=== PATIENT | female | born 1965 | race Caucasian/White ===

== ENCOUNTER → 2016-11-16 | Outpatient (CLI) | payer OTHER ==
--- NOTE | 2016-11-16 20:42 | CONS ---
DATE OF CONSULTATION: 11/16/2016 This patient is a 51-year-old lady who has been evaluated in the sleep center for snoring, awakenings from sleep with choking and excessive daytime sleepiness. HISTORY OF PRESENT ILLNESS/SLEEP-WAKE EVALUATION: Patient's usual sleep schedule is from around 11 p.m. until 5:30 a.m. on working days, and on weekends and days off, it varies. She sometimes has problems falling asleep. She has TV set in bedroom. Usually sleeps on the side position with snoring, awakenings with gasping for air, grinding teeth, heartburn and nocturia up to 3 times per night. In the morning patient wakes up tired, feels sleepiness during the day. [place] Sleepiness Scale increased to 10. No history of hypnagogic hallucinations, sleep paralysis or cataplexy. Past medical history is positive for: 1. ADD. 2. Acid reflux. 3. Anxiety. 4. Hypertension. 5. Melanoma of the skin of the back. PAST SURGICAL HISTORY: 1. Uterus ablation for bleeding. 2. Breast reduction. 3. Surgical treatment of melanoma of the back. 4. Surgery of the nose many years ago after nasal fracture. SOCIAL HISTORY: Positive for smoking 1 pack a day for about 20 years. Alcohol consumption is occasional. MEDICATIONS: 1. Adderall. 2. Toprazole. 3. Lisinopril. 4. Citalopram. FAMILY HISTORY: Hypertension, heart problems, sinus problems, bronchitis, pneumonia, headaches, acid reflux, diabetes, anemia, during sleep. REVIEW OF SYSTEMS: Multiple awakenings from sleep, excessive daytime sleepiness. No fevers. No double vision. No recent chest pain. No shortness of breath. No abdominal pain. No bleeding episodes. No blood in urine. No seizure episodes. PHYSICAL EXAMINATION: lady without distress. VITAL SIGNS: BP 130/82, HR 104, RR 16. Height 5 feet 4-1/2 inches. Weight 164. BMI 27.7. Neck 15 inches in circumference. Temperature 98.2. Oxygen saturation at room air 99%. HEENT: PERRLA, EOMI. Evaluation of oropharynx showed tongue protrudes midline; extremely low position of soft palate. Restriction of nasal breathing. Nasal septum deviation. Asymmetric nostrils. NECK: Supple. No JVD. Thyroid is not palpable. LUNGS: Clear to percussion and to auscultation. Good air exchange. No wheezing or rhonchi. HEART: S1, S2 regular. No murmurs, gallops or rubs. ABDOMEN: Soft and nontender. Bowel sounds are present. No organomegaly appreciated. EXTREMITIES: No clubbing or cyanosis. INSURANCE CLAIMS ASSISTANT: Awake, alert, and oriented x3. Cranial nerves 2 to 7 intact. There is no fasciculation or atrophy noted. No focal deficits observed. Scar on the back. IMPRESSION: 1. Snoring, awakenings from sleep with choking, extremely low position of soft palate, restriction of nasal breathing, sleepiness. [place] Sleepiness Scale is 10. Obstructive sleep apnea-hypopnea syndrome. 2. Hypertension. 3. Anxiety. 4. History of attention deficit disorder, on treatment with Adderall. 5. Acid reflux. 6. History of melanoma of the skin on the back, status post surgical treatment. 7. History of nasal fracture in childhood. 8. Status post nasal surgery for nasal fracture and nasal septum deviation. Patient continues to have some problems with breathing through the nose, nasal septum deviation. 9. Status post uterus ablation for bleeding. PLAN: 1. Polysomnography for evaluation of patient's breathing during sleep. 2. CPAP/BiPAP titration if sleep study confirms obstructive sleep apnea-hypopnea syndrome. 3. Preferable position during sleep on the side. 4. No driving if patient feels any sleepiness. Patient is aware of civil and criminal liability for unsafe driving. 5. I will see patient for follow-up visit to explain results of the testing and following plan. Thank you very much for referring this patient for consultation. Sincerely, Addison Mcfarland MD, PhD, FAASM. Diplomat of [place] [employer], Sleep Medicine Board by [place] [employer] [place] [employer] Vice President Of [employer] [facility] [place]
== END | disposition home or self-care (01) ==
LOC: SLEEP 13:21
PROVIDERS: ATTEND Internal Medicine
DX: G47.33 Obstructive sleep apnea (adult) (pediatric) (principal); I10 Essential (primary) hypertension; F41.9 Anxiety disorder, unspecified; F98.8 Other specified behavioral and emotional disorders with onset usually occurring in childhood and adolescence; K21.9 Gastro-esophageal reflux disease without esophagitis; Z79.899 Other long term (current) drug therapy

== ENCOUNTER → 2018-08-07 | Outpatient (CLI) | payer OTHER ==
--- NOTE | 2018-08-07 12:14 | SFUN ---
SLEEP CENTER FOLLOW UP NOTE DATE OF SERVICE: 08/07/2018 This 52-year-old lady has been re-evaluated in sleep center for possible obstructive sleep apnea-hypopnea syndrome. Patient was seen in sleep center in 11/16/2016. At that time, was recommended to proceed with sleep study for possible obstructive sleep apnea, but for different reason patient was not able to do that at that time. The patient continues to snore. According to her , she has episodes of stopped breathing during the sleep. Her sleep schedule from 10 to 11 p.m. until 5:45 a.m. and she wakes up around 4 times from sleep with nocturia. In the morning, she wakes up tired. [place] Sleepiness Scale is 9. CURRENT MEDICATIONS: Metformin, Celexa, atorvastatin, Adderall, omeprazole, lisinopril. PHYSICAL EXAMINATION: During physical exam, patient in no distress VITAL SIGNS: BP 135/87, HR around 110, RR 16, height 5 feet 4-1/2 inches, weight 164 pounds, body mass index 27.7, temperature 98.5, oxygen saturation at room air 97%. HEENT: PERRLA, EOMI. Oropharynx extremely low position of soft palate. Mallampati 4. Asymmetric nose. NECK: Supple, no JVD. Thyroid is not palpable. LUNGS: Clear to percussion and to auscultation. Good air exchange. No wheezing or rhonchi. HEART: S1, S2 regular. No murmurs, gallops, or rubs. ABDOMEN: Soft and nontender. Bowel sounds are present. No organomegaly appreciated. EXTREMITIES: No clubbing or cyanosis. CAR WIPER: Awake, alert, and oriented X3. Cranial nerves 2 to 7 intact. There is no fasciculation or atrophy. noted. No focal deficits observed. IMPRESSION: 1. Snoring, witnessed episodes of stopped breathing during the sleep, low position of soft palate, awakenings from sleep, obstructive sleep apnea-hypopnea syndrome. 2. Hypertension. 3. Anxiety. 4. History of attention deficit disorder treatment with Adderall. 5. Acid reflux. 6. History of melanoma of the skin of the back, status post surgical treatment. 7. History of nasal fracture in chart with asymmetry of nose and status post surgical treatment for nasal septum deviation. 8. Diabetes mellitus. 9. Hyperlipidemia. 10.Status post uterus ablation in the past for bleeding. PLAN: 1. Polysomnography for evaluation of patient's breathing during the sleep. 2. CPAP titration if sleep study will be positive for obstructive sleep apnea-hypopnea syndrome. 3. Watching weight. 4. Sleep hygiene with regular time in bed for at least 7-1/2 hours. 5. No driving if feeling any sleepiness. Thank you very much for allowing me to participate in management of your patient. Sincerely, Addison Mcfarland MD, PhD, FAASM Diplomat of [place] [employer] [place] [employer] Nurse [employer] [facility] [place] MMODL / IJN: [id number] /
== END ==
LOC: SLEEP 11:06
PROVIDERS: ATTEND Internal Medicine
DX: G47.33 Obstructive sleep apnea (adult) (pediatric) (principal); I10 Essential (primary) hypertension; F41.9 Anxiety disorder, unspecified; K21.9 Gastro-esophageal reflux disease without esophagitis; Z85.820 Personal history of malignant melanoma of skin; Z87.81 Personal history of (healed) traumatic fracture; Z98.890 Other specified postprocedural states; E11.9 Type 2 diabetes mellitus without complications; E78.5 Hyperlipidemia, unspecified; Z99.89 Dependence on other enabling machines and devices; Z86.69 Personal history of other diseases of the nervous system and sense organs; Z79.84 Long term (current) use of oral hypoglycemic drugs; Z79.899 Other long term (current) drug therapy

== ENCOUNTER 2020-07-31 08:49 | Emergency (ER) | payer OTHER ==
[2020-07-31 08:54] VITALS: BP 147/90; TEMP 98.2
[2020-07-31] MEDS ORDERED: IBUPROFEN 800 MG TAB PO STA (09:09)
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
--- NOTE | 2020-07-31 09:47 | XR ---
EXAMINATION TYPE: XR chest 2V DATE OF EXAM: 07/31/2020 COMPARISON: 10/19/2010 HISTORY: 54-year-old female with chest pain and weakness TECHNIQUE: PA and lateral views FINDINGS: The cardiomediastinal silhouette, aorta, and pulmonary vasculature are within normal limits. Lungs an d pleural spaces are clear. IMPRESSION: No acute cardiopulmonary process.
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
[2020-07-31 10:16] VITALS: PULSE 89; RESP 16
== END 2020-07-31 10:15 | disposition home or self-care (01) ==
LOC: EC 08:49
DX: S16.1XXA Strain of muscle, fascia and tendon at neck level, initial encounter (principal); S39.012A Strain of muscle, fascia and tendon of lower back, initial encounter; S20.219A Contusion of unspecified front wall of thorax, initial encounter; Z88.2 Allergy status to sulfonamides; V89.2XXA Person injured in unspecified motor-vehicle accident, traffic, initial encounter; Y92.410 Unspecified street and highway as the place of occurrence of the external cause
CPT/HCPCS: 71046; 72050; 72110; 72170; 99284

== ENCOUNTER 2020-12-07 11:57 | Emergency (ER) | payer OTHER ==
[2020-12-07 12:03] VITALS: RESP 16; TEMP 98.5
--- NOTE | 2020-12-07 12:22 | ED ---
General Adult HPI - General Chief complaint: Arrhythmia/Palpitations Stated complaint: palpitations Time Seen by Provider: 12/07/20 12:04 Source: patient Mode of arrival: ambulatory Limitations: no limitations - History of Present Illness Initial comments: Dictation was produced using [employer] dictation software. please excuse any grammatical, word or spelling errors. Chief Complaint: 55-year-old female presents with 2-3 days of palpitations and shortness breath History of Present Illness: 55-year-old female she has past medical history of diabetes, hypertension high cholesterol. She states that over the last 2-3 days she develop symptoms of palpitatory chest discomfort and shortness of breath. She states she can feel the fluttering in her chest. She denies that it feels like pain but more like a fluttering discomfort. Patient states that she has history of mitral valve prolapse. She has not seen a gas furnace installer in several years. There has any fever, chills or night sweats. Patient denies a history of blood clots. She denies any LOC show any symptoms. The ROS documented in this emergency department record has been reviewed and confirmed by me. Those systems with pertinent positive or negative responses have been documented in the HPI. All other systems are other negative and/or noncontributory. PHYSICAL EXAM: General Impression: Alert and oriented x3, not in acute distress HEENT: Normocephalic atraumatic, extra-ocular movements intact, pupils equal and reactive to light bilaterally, mucous membranes moist. Cardiovascular: Heart regular rate and rhythm Chest: Able to complete full sentences, no retractions, no tachypnea Abdomen: abdomen soft, non-tender, non-distended, no organomegaly Musculoskeletal: Pulses present and equal in all extremities, no peripheral edema Motor: no focal deficits noted Neurological: CN II-XII grossly intact, no focal motor or sensory deficits noted Skin: Intact with no visualized rashes Psych: Normal affect and mood ED course: 55-year-old female presents with palpitations and shortness of breath. Vital signs upon arrival are within acceptable limits. Laboratory evaluation obtained. CBC unremarkable. Metabolic panel is negative aside for some mild dehydration. Chest x-ray is unremarkable. D-dimer is negative. Patient observed in emergency department for approximately 2 hours and 11 minutes with no acute processes. Patient still has some PVCs a lot less after IV hydration. Patient told to follow-up with a gas furnace installer. Return precautions discussed. EKG interpretation: Ventricular rate 101, sinus tachycardia,. 142, QRS 70, QTC 474. Multiple PVCs.. No KS prolongation, no QTC prolongation, no ST or T-wave changes noted. No old EKG for comparison. Overall, this EKG is unremarkable - Related Data Home Medications Medication Instructions Recorded Confirmed Dextroamphetamine/Amphetamine 30 mg PO DAILY 07/31/20 12/07/20 [Adderall] [place]-3 Fatty Acids/Fish Oil [Fish 1 cap PO DAILY 07/31/20 12/07/20 Oil 1,000 mg Softgel] Omeprazole 40 mg PO DAILY 07/31/20 12/07/20 lisinopriL [Zestril] 10 mg PO DAILY 07/31/20 12/07/20 Aspirin EC [Ecotrin Low Dose] 81 mg PO DAILY 12/07/20 12/07/20 Atorvastatin Calcium [Lipitor] 10 mg PO HS 12/07/20 12/07/20 Cholecalciferol (Vitamin D3) 125 mcg PO DAILY 12/07/20 12/07/20 [Vitamin D3 (5000 Iu)] metFORMIN HCL ER [Glucophage Xr] 500 mg PO HS 12/07/20 12/07/20 Allergies Allergy/AdvReac Type Severity Reaction Status Date / Time Sulfa (Sulfonamide Allergy Rash/Hives Verified 12/07/20 13:53 Antibiotics) Review of Systems ROS Statement: Those systems with pertinent positive or pertinent negative responses have been documented in the HPI. ROS Other: All systems not noted in ROS Statement are negative. Past Medical History Past Medical History: Diabetes Mellitus, Hypertension History of Any Multi-Drug Resistant Organisms: None Reported Past Surgical History: No Surgical Hx Reported Past Psychological History: No Psychological Hx Reported Smoking Status: Never smoker Past Alcohol Use History: Occasional Past Drug Use History: Marijuana General Exam Limitations: no limitations Course Vital Signs 12/07/20 12:01 Temperature 98.5 F Pulse Rate 100 Respiratory 16 Rate Blood Pressure 127/86 O2 Sat by Pulse 98 Oximetry Medical Decision Making - Lab Data Result diagrams: 12/07/20 12:13 12/07/20 12:13 Lab Results 12/07/20 12/07/20 12/07/20 Range/Units 12:13 12:13 12:13 WBC 9.0 (3.8-10.6) k/uL RBC 4.72 (3.80-5.40) m/uL Hgb 13.8 (11.4-16.0) gm/dL Hct 40.1 (34.0-46.0) % MCV 84.9 (80.0-100.0) fL MCH 29.3 (25.0-35.0) pg MCHC 34.5 (31.0-37.0) g/dL RDW 14.3 (11.5-15.5) % Plt Count 309 (150-450) k/uL MPV 7.4 Neutrophils % 71 % Lymphocytes % 22 % Monocytes % 3 % Eosinophils % 2 % Basophils % 1 % Neutrophils # 6.5 (1.3-7.7) k/uL Lymphocytes # 2.0 (1.0-4.8) k/uL Monocytes # 0.3 (0-1.0) k/uL Eosinophils # 0.2 (0-0.7) k/uL Basophils # 0.0 (0-0.2) k/uL D-Dimer (<0.60) mg/L FEU Sodium 136 L (137-145) mmol/L Potassium 4.6 (3.5-5.1) mmol/L Chloride 100 (98-107) mmol/L Carbon Dioxide 23 (22-30) mmol/L Anion Gap 13 mmol/L BUN 21 H (7-17) mg/dL Creatinine 0.63 (0.52-1.04) mg/dL Est GFR (CKD-EPI)AfAm >90 (>60 ml/min/1.73 sqM) Est GFR (CKD-EPI)NonAf >90 (>60 ml/min/1.73 sqM) Glucose 175 H (74-99) mg/dL Calcium 10.9 H (8.4-10.2) mg/dL Magnesium 1.8 (1.6-2.3) mg/dL Troponin I <0.012 (0.000-0.034) ng/mL 12/07/20 Range/Units 12:47 WBC (3.8-10.6) k/uL RBC (3.80-5.40) m/uL Hgb (11.4-16.0) gm/dL Hct (34.0-46.0) % MCV (80.0-100.0) fL MCH (25.0-35.0) pg MCHC (31.0-37.0) g/dL RDW (11.5-15.5) % Plt Count (150-450) k/uL MPV Neutrophils % % Lymphocytes % % Monocytes % % Eosinophils % % Basophils % % Neutrophils # (1.3-7.7) k/uL Lymphocytes # (1.0-4.8) k/uL Monocytes # (0-1.0) k/uL Eosinophils # (0-0.7) k/uL Basophils # (0-0.2) k/uL D-Dimer 0.30 (<0.60) mg/L FEU Sodium (137-145) mmol/L Potassium (3.5-5.1) mmol/L Chloride (98-107) mmol/L Carbon Dioxide (22-30) mmol/L Anion Gap mmol/L BUN (7-17) mg/dL Creatinine (0.52-1.04) mg/dL Est GFR (CKD-EPI)AfAm (>60 ml/min/1.73 sqM) Est GFR (CKD-EPI)NonAf (>60 ml/min/1.73 sqM) Glucose (74-99) mg/dL Calcium (8.4-10.2) mg/dL Magnesium (1.6-2.3) mg/dL Troponin I (0.000-0.034) ng/mL Disposition Clinical Impression: Palpitations Disposition: HOME SELF-CARE Condition: Good Instructions (If sedation given, give patient instructions): Heart Palpitations (ED) Is patient prescribed a controlled substance at d/c from ED?: No Referrals: Ping Canela MD [Primary Care Provider] - 1-2 days
[2020-12-07 12:27] LABS: Basophils % (A) 1 %; Eosinophils # (A) 0.2 k/uL (0-0.7); Eosinophils % (A) 2 %; HCT 40.1 % (34.0-46.0); HGB 13.8 gm/dL (11.4-16.0); Lymphocytes % (A) 22 %; MCH 29.3 pg (25.0-35.0); MCHC 34.5 g/dL (31.0-37.0); MCV 84.9 fL (80.0-100.0); Mean Platelet Volume 7.4; Monocytes # (A) 0.3 k/uL (0-1.0); Monocytes % (A) 3 %; Neutrophils # (A) 6.5 k/uL (1.3-7.7); Neutrophils % (A) 71 %; Platelet Count 309 k/uL (150-450); RBC 4.72 m/uL (3.80-5.40); RDW 14.3 % (11.5-15.5)
[2020-12-07 12:38] LABS: African American GFR (CKD) >90 (>60 ml/min/1.73 sqM); Anion Gap 13 mmol/L; Blood Urea Nitrogen 21 mg/dL (7-17); Calcium 10.9 mg/dL (8.4-10.2); Carbon Dioxide 23 mmol/L (22-30); Chloride 100 mmol/L (98-107); Glucose 175 mg/dL (74-99); Magnesium 1.8 mg/dL (1.6-2.3); Non-African American GFR(CKD) >90 (>60 ml/min/1.73 sqM); Potassium 4.6 mmol/L (3.5-5.1); Sodium 136 mmol/L (137-145)
--- NOTE | 2020-12-07 12:38 | XR ---
EXAMINATION TYPE: XR chest 1V portable DATE OF EXAM: 12/07/2020 COMPARISON: 07/31/2020 HISTORY: Palpitations TECHNIQUE: Single frontal view of the chest is obtained. FINDINGS: There is no focal air space opacity, pleural effusion, or pneumothorax seen. The cardiac silhouette size is within normal limits. The osseous structures are intact. IMPRESSION: No acute process.
[2020-12-07] MEDS ORDERED: SODIUM CHLORIDE 0.9% 1,000 ML IV STA (12:41)
[2020-12-07 14:20] VITALS: BP 127/79; PULSE 84
== END 2020-12-07 14:19 | disposition home or self-care (01) ==
LOC: EC 11:57
DX: R00.2 Palpitations (principal); R06.02 Shortness of breath; E11.9 Type 2 diabetes mellitus without complications; I10 Essential (primary) hypertension; E78.00 Pure hypercholesterolemia, unspecified; F12.90 Cannabis use, unspecified, uncomplicated; Z79.84 Long term (current) use of oral hypoglycemic drugs; Z79.82 Long term (current) use of aspirin; Z79.899 Other long term (current) drug therapy; Z88.2 Allergy status to sulfonamides
CPT/HCPCS: 36415; 71045; 80048; 83735; 84484; 85025; 85379; 93005; 99285

== ENCOUNTER 2021-07-28 20:46 | Inpatient (IN) | payer OTHER ==
[2021-07-28] MEDS ORDERED: SODIUM CHLORIDE 0.9% 1,000 ML IV STA (21:41)
[2021-07-28] MEDS ORDERED: ONDANSETRON 4 MG/2 ML VIAL IVP STA (22:18)
[2021-07-28 22:27] LABS: Basophils # (A) 0.1 k/uL (0-0.2); Basophils % (A) 1 %; Eosinophils # (A) 0.2 k/uL (0-0.7); Eosinophils % (A) 1 %; HCT 43.9 % (34.0-46.0); HGB 14.1 gm/dL (11.4-16.0); Lymphocytes % (A) 16 %; MCH 28.9 pg (25.0-35.0); MCV 90.2 fL (80.0-100.0); Mean Platelet Volume 8.1; Monocytes # (A) 0.8 k/uL (0-1.0); Monocytes % (A) 5 %; Neutrophils % (A) 76 %; Platelet Count 328 k/uL (150-450); RBC 4.87 m/uL (3.80-5.40); RDW 14.2 % (11.5-15.5); WBC 18.3 k/uL (3.8-10.6)
[2021-07-28 22:39] LABS: Albumin 4.9 g/dL (3.5-5.0); Calcium 10.5 mg/dL (8.4-10.2); Magnesium 2.1 mg/dL (1.6-2.3); Potassium 3.9 mmol/L (3.5-5.1); Total Bilirubin 0.6 mg/dL (0.2-1.3); Total Protein 7.9 g/dL (6.3-8.2)
[2021-07-28 22:39] LABS: Glucose,Whole Blood 124 mg/dL (75-99)
[2021-07-28 22:50] LABS: INR 0.9 (<1.2); Prothrombin Time 10.2 sec (9.0-12.0)
[2021-07-28 22:58] LABS: Partial Thromboplastin Time 19.8 sec (22.0-30.0)
--- NOTE | 2021-07-28 23:14 | XR ---
EXAMINATION TYPE: XR chest 2V DATE OF EXAM: 07/28/2021 COMPARISON: 12/07/2020 HISTORY: Syncope TECHNIQUE: 2 views FINDINGS: Heart and mediastinum are normal. Lungs are clear. Diaphragm is normal. Bony thorax appears normal. IMPRESSION: Normal chest. No change.
--- NOTE | 2021-07-28 23:56 | CT ---
EXAMINATION TYPE: CT chest angio for PE DATE OF EXAM: 07/28/2021 COMPARISON: None HISTORY: elevated D-dimer/dizziness CT DLP: 350 mGycm Automated exposure control for dose reduction was used. CONTRAST: Performed with IV Contrast, patient injected with 80ml mL of Isovue 370. Images obtained from the thoracic inlet to the diaphragm with IV contrast. There are Three-D postproc essed images. The lungs are clear of consolidation. There is no evidence of a pulmonary mass. There is no pleural e ffusion. There is some fatty infiltration of the liver. Spleen is intact There is no pericardial effusion. There are no hilar masses. There is no mediastinal adenopathy. Thor acic aorta is intact. There is no aneurysm or dissection. The ascending aorta measures 3.1 cm. There is normal contrast opacification of the pulmonary arteries. There are no filling defects. Heart size is normal. The thoracic spine is intact. Sternum is intact. There is bilateral breast implants. IMPRESSION: No evidence of pulmonary embolism. Fatty infiltration of the liver.
[2021-07-29] MEDS ORDERED: SODIUM CHLORIDE 0.9% 1,000 ML IV STA (00:33)
[2021-07-29] MEDS ORDERED: NALOXONE 0.4 MG/ML 1 ML VIAL IV PRN (00:34)
[2021-07-29] MEDS ORDERED: ONDANSETRON 4 MG/2 ML VIAL IVP PRN (00:34)
[2021-07-29 01:07] LABS: Appearance,Urine Clear (Clear); Bacteria,Urine Occasional /hpf; Bilirubin,Urine Negative (Negative); Blood,Urine Negative (Negative); Color,Urine Yellow; Glucose,Urine (UA) Negative (Negative); Hyaline Casts,Urine 9 /lpf (0-2); Ketones,Urine Negative (Negative); Leukocyte Esterase,Urine Negative (Negative); Mucus,Urine Rare /hpf; Nitrite,Urine Negative (Negative); Protein,Urine 1+ (Negative); RBC,Urine 1 /hpf (0-5); Squamous Epithelial Cell,Urine <1 /hpf (0-4); Urobilinogen,Urine <2.0 mg/dL (<2.0); WBC,Urine 2 /hpf (0-5)
[2021-07-29 01:12] LABS: Specific Gravity,Urine 1.048 (1.001-1.035)
[2021-07-29] MEDS ORDERED: ASPIRIN 81 MG PO STA (01:18)
--- NOTE | 2021-07-29 01:22 | ED ---
General Adult HPI - General Chief complaint: Syncope Stated complaint: Dizziness Time Seen by Provider: 07/28/21 21:21 Source: patient, family, EMS, RN notes reviewed, old records reviewed Mode of arrival: EMS Limitations: no limitations - History of Present Illness Initial comments: Patient is a 55-year-old female with past medical history remarkable for diabetes, hypertension who presents to Department following a near-syncopal episode at work. Patient states that she's been having palpitations and felt like she was about to pass out at work. Vision went completely black but she did not fully pass out. She was able unable herself to the ground and did not injure herself. Symptoms resolved on their own. After this happened, she became flushed, sweaty, and had multiple episodes of diarrhea. She was a little short of breath at this time as well. She presented to the emergency department for further evaluation. I spoke with her PCP, Dr. Phillips over the phone who informed me that she was in the office early this week for palpitations and EKG at that time showed PACs. Plan was to follow-up with cardiology. She has not seen a concrete pourer in quite some time. She currently states she feels a little nauseous, however denies any acute complaints at this time. Denied any chest pain. Denied any shortness of breath currently. Still feels a little lightheaded. Has no other acute complaint at this time. Presents emergency department for further evaluation.Denies any history of blood clots, hormonal therapy. - Related Data Home Medications Medication Instructions Recorded Confirmed Omeprazole 40 mg PO DAILY 07/31/20 07/28/21 lisinopriL [Zestril] 10 mg PO DAILY 07/31/20 07/28/21 Atorvastatin Calcium [Lipitor] 10 mg PO HS 12/07/20 07/28/21 metFORMIN HCL ER [Glucophage Xr] 500 mg PO W/SUPPER 12/07/20 07/28/21 Allergies Allergy/AdvReac Type Severity Reaction Status Date / Time Sulfa (Sulfonamide Allergy Rash/Hives Verified 07/28/21 23:11 Antibiotics) Review of Systems ROS Statement: Those systems with pertinent positive or pertinent negative responses have been documented in the HPI. Review of Systems: CONST: Denies fever EYES: Denies blurry vision ENT: Denies nasal congestion C/V: Denies Chest pain RESP: Denies shortness of breath GI: Nausea : Denies dysuria SKIN: Denies rash. MSK: Denies joint pain. NEURO: Denies headache ROS Other: All systems not noted in ROS Statement are negative. Past Medical History Past Medical History: Diabetes Mellitus, Hypertension History of Any Multi-Drug Resistant Organisms: None Reported Past Surgical History: No Surgical Hx Reported Past Psychological History: No Psychological Hx Reported Smoking Status: Never smoker Past Alcohol Use History: Occasional Past Drug Use History: Marijuana General Exam - General Exam Comments Initial Comments: General: Appears in no acute distress. HEAD: Normal with no signs of head trauma. EYES: PERRLA, EOMI, conjunctiva normal, no discharge. Pupils are 3 mm and equal bilaterally. ENT: Hearing grossly intact, normal oropharynx. Mildly dry mucous membranes. RESPIRATORY: Clear breath sounds bilaterally. No wheezes, rales, or rhonchi. C/V: Regular rate and rhythm. S1 and S2 auscultated, no edema, peripheral pulses 2+ and intact throughout ABD: Abd is soft, nontender, nondistended EXT: Normal range of motion, no obvious deformity SKIN: No rashes or lesions observed on exposed skin. NEURO: Alert and oriented 4. No focal sensory strength deficits. NIH is 0. GCS is 15. Limitations: no limitations Course Vital Signs 07/28/21 21:20 Temperature 97.5 F L Pulse Rate 74 Respiratory 18 Rate Blood Pressure 86/42 O2 Sat by Pulse 100 Oximetry Medical Decision Making - Medical Decision Making Based on the patient's presentation and physical exam, she appears to have had a nursing the episode at work. Cannot rule out dehydration, infectious processes cardio pulmonary etiology at this time. There is clinical suspicion for possible pulmonary embolism as well as an therefore we will obtain a d-dimer. This is in addition to cardiac workup and basic labs. She'll be administered 2 fluid boluses as blood pressure initially was on the softer side, with systolics in the 80s. She did have multiple episodes of diarrhea and is concerned for dehydration. She was in agreement this plan. She'll also be given IV Zofran. Patient also be given a chewable aspirin. EKG showed no signs of acute ischemia. Chest x-ray showed no acute cardiopulmonary process. Laboratory studies are remarkable for a leukocytosis of 18.3 with no obvious signs of infection. D-dimer is greater than 34.1. Creatinine is slightly elevated to 1.19. Lactate is slightly elevated 2.9. ALT is slightly elevated to 126. Troponin is negative. Urinalysis is unremarkable. Covid is negative. Due to the patient's elevated d-dimer, I would like to obtain CT angiogram to rule out possibility of PE. She was in agreement this plan. CT PE was negative for pulmonary embolism. On reevaluation, patient is feeling improved. Blood pressure is now 130s systolic. Vital signs remained within normal limits and stable otherwise. I discussed the results of her laboratory studies and imaging with her. I would like to admit the hospital for evaluation by cardiology as well as for further fluid hydration. She was in agreement this plan. We will also send off a Covid PCR, as despite her being fully vaccinated, she is frequently around COVID-19 at her work. She was in agreement this plan. I spoke with the admitting team,[facility] of the [facility] who accepted the patient. Patient was therefore admitted in serious condition to Dr. Longo. Cardiology was consulted. Bilateral venous duplex is will be obtained in the morning, as the patient has the severely elevated d-dimer to rule out possibility of DVT. However she does have no signs or symptoms of DVT at this time. Patient was in agreement this plan. - Lab Data Result diagrams: 07/28/21 21:49 07/28/21 21:49 Lab Results 07/28/21 07/28/21 07/28/21 Range/Units 21:49 21:49 21:49 WBC 18.3 H (3.8-10.6) k/uL RBC 4.87 (3.80-5.40) m/uL Hgb 14.1 (11.4-16.0) gm/dL Hct 43.9 (34.0-46.0) % MCV 90.2 (80.0-100.0) fL MCH 28.9 (25.0-35.0) pg MCHC 32.0 (31.0-37.0) g/dL RDW 14.2 (11.5-15.5) % Plt Count 328 (150-450) k/uL MPV 8.1 Neutrophils % 76 % Lymphocytes % 16 % Monocytes % 5 % Eosinophils % 1 % Basophils % 1 % Neutrophils # 14.0 H (1.3-7.7) k/uL Lymphocytes # 3.0 (1.0-4.8) k/uL Monocytes # 0.8 (0-1.0) k/uL Eosinophils # 0.2 (0-0.7) k/uL Basophils # 0.1 (0-0.2) k/uL PT 10.2 (9.0-12.0) sec INR 0.9 (<1.2) APTT 19.8 L (22.0-30.0) sec D-Dimer >34.10 H (<0.60) mg/L FEU Sodium 140 (137-145) mmol/L Potassium 3.9 (3.5-5.1) mmol/L Chloride 103 (98-107) mmol/L Carbon Dioxide 26 (22-30) mmol/L Anion Gap 11 mmol/L BUN 19 H (7-17) mg/dL Creatinine 1.19 H (0.52-1.04) mg/dL Est GFR (CKD-EPI)AfAm 60 (>60 ml/min/1.73 sqM) Est GFR (CKD-EPI)NonAf 52 (>60 ml/min/1.73 sqM) Glucose 146 H (74-99) mg/dL POC Glucose (mg/dL) (75-99) mg/dL POC Glu Content Administrator ID Lactic Ac Sepsis Rflx Plasma Lactic Acid Shree (0.7-2.0) mmol/L Calcium 10.5 H (8.4-10.2) mg/dL Magnesium 2.1 (1.6-2.3) mg/dL Total Bilirubin 0.6 (0.2-1.3) mg/dL AST 59 H (14-36) U/L ALT 126 H (4-34) U/L Alkaline Phosphatase 94 (38-126) U/L Troponin I (0.000-0.034) ng/mL Total Protein 7.9 (6.3-8.2) g/dL Albumin 4.9 (3.5-5.0) g/dL Urine Color Urine Appearance (Clear) Urine pH (5.0-8.0) Ur Specific [place] (1.001-1.035) Urine Protein (Negative) Urine Glucose (UA) (Negative) Urine Ketones (Negative) Urine Blood (Negative) Urine Nitrite (Negative) Urine Bilirubin (Negative) Urine Urobilinogen (<2.0) mg/dL Ur Leukocyte Esterase (Negative) Urine RBC (0-5) /hpf Urine WBC (0-5) /hpf Ur Squamous Epith Cells (0-4) /hpf Urine Bacteria (None) /hpf Hyaline Casts (0-2) /lpf Urine Mucus (None) /hpf Urine HCG, Qual (Not Detectd) Coronavirus (PCR) (Not Detectd) 07/28/21 07/28/21 07/28/21 Range/Units 21:49 21:49 21:49 WBC (3.8-10.6) k/uL RBC (3.80-5.40) m/uL Hgb (11.4-16.0) gm/dL Hct (34.0-46.0) % MCV (80.0-100.0) fL MCH (25.0-35.0) pg MCHC (31.0-37.0) g/dL RDW (11.5-15.5) % Plt Count (150-450) k/uL MPV Neutrophils % % Lymphocytes % % Monocytes % % Eosinophils % % Basophils % % Neutrophils # (1.3-7.7) k/uL Lymphocytes # (1.0-4.8) k/uL Monocytes # (0-1.0) k/uL Eosinophils # (0-0.7) k/uL Basophils # (0-0.2) k/uL PT (9.0-12.0) sec INR (<1.2) APTT (22.0-30.0) sec D-Dimer (<0.60) mg/L FEU Sodium (137-145) mmol/L Potassium (3.5-5.1) mmol/L Chloride (98-107) mmol/L Carbon Dioxide (22-30) mmol/L Anion Gap mmol/L BUN (7-17) mg/dL Creatinine (0.52-1.04) mg/dL Est GFR (CKD-EPI)AfAm (>60 ml/min/1.73 sqM) Est GFR (CKD-EPI)NonAf (>60 ml/min/1.73 sqM) Glucose (74-99) mg/dL POC Glucose (mg/dL) (75-99) mg/dL POC Glu Content Administrator ID Lactic Ac Sepsis Rflx Plasma Lactic Acid Shree 2.9 H* (0.7-2.0) mmol/L Calcium (8.4-10.2) mg/dL Magnesium (1.6-2.3) mg/dL Total Bilirubin (0.2-1.3) mg/dL AST (14-36) U/L ALT (4-34) U/L Alkaline Phosphatase (38-126) U/L Troponin I <0.012 (0.000-0.034) ng/mL Total Protein (6.3-8.2) g/dL Albumin (3.5-5.0) g/dL Urine Color Urine Appearance (Clear) Urine pH (5.0-8.0) Ur Specific [place] (1.001-1.035) Urine Protein (Negative) Urine Glucose (UA) (Negative) Urine Ketones (Negative) Urine Blood (Negative) Urine Nitrite (Negative) Urine Bilirubin (Negative) Urine Urobilinogen (<2.0) mg/dL Ur Leukocyte Esterase (Negative) Urine RBC (0-5) /hpf Urine WBC (0-5) /hpf Ur Squamous Epith Cells (0-4) /hpf Urine Bacteria (None) /hpf Hyaline Casts (0-2) /lpf Urine Mucus (None) /hpf Urine HCG, Qual (Not Detectd) Coronavirus (PCR) Not Detected (Not Detectd) 07/28/21 07/28/21 07/29/21 Range/Units 22:37 22:56 00:00 WBC (3.8-10.6) k/uL RBC (3.80-5.40) m/uL Hgb (11.4-16.0) gm/dL Hct (34.0-46.0) % MCV (80.0-100.0) fL MCH (25.0-35.0) pg MCHC (31.0-37.0) g/dL RDW (11.5-15.5) % Plt Count (150-450) k/uL MPV Neutrophils % % Lymphocytes % % Monocytes % % Eosinophils % % Basophils % % Neutrophils # (1.3-7.7) k/uL Lymphocytes # (1.0-4.8) k/uL Monocytes # (0-1.0) k/uL Eosinophils # (0-0.7) k/uL Basophils # (0-0.2) k/uL PT (9.0-12.0) sec INR (<1.2) APTT (22.0-30.0) sec D-Dimer (<0.60) mg/L FEU Sodium (137-145) mmol/L Potassium (3.5-5.1) mmol/L Chloride (98-107) mmol/L Carbon Dioxide (22-30) mmol/L Anion Gap mmol/L BUN (7-17) mg/dL Creatinine (0.52-1.04) mg/dL Est GFR (CKD-EPI)AfAm (>60 ml/min/1.73 sqM) Est GFR (CKD-EPI)NonAf (>60 ml/min/1.73 sqM) Glucose (74-99) mg/dL POC Glucose (mg/dL) 124 H (75-99) mg/dL POC Glu Content Administrator ID Estefania Warner Lactic Ac Sepsis Rflx Y Plasma Lactic Acid Shree (0.7-2.0) mmol/L Calcium (8.4-10.2) mg/dL Magnesium (1.6-2.3) mg/dL Total Bilirubin (0.2-1.3) mg/dL AST (14-36) U/L ALT (4-34) U/L Alkaline Phosphatase (38-126) U/L Troponin I (0.000-0.034) ng/mL Total Protein (6.3-8.2) g/dL Albumin (3.5-5.0) g/dL Urine Color Yellow Urine Appearance Clear (Clear) Urine pH 6.0 (5.0-8.0) Ur Specific [place] 1.048 H (1.001-1.035) Urine Protein 1+ H (Negative) Urine Glucose (UA) Negative (Negative) Urine Ketones Negative (Negative) Urine Blood Negative (Negative) Urine Nitrite Negative (Negative) Urine Bilirubin Negative (Negative) Urine Urobilinogen <2.0 (<2.0) mg/dL Ur Leukocyte Esterase Negative (Negative) Urine RBC 1 (0-5) /hpf Urine WBC 2 (0-5) /hpf Ur Squamous Epith Cells <1 (0-4) /hpf Urine Bacteria Occasional H (None) /hpf Hyaline Casts 9 H (0-2) /lpf Urine Mucus Rare H (None) /hpf Urine HCG, Qual (Not Detectd) Coronavirus (PCR) (Not Detectd) 07/29/21 Range/Units 00:00 WBC (3.8-10.6) k/uL RBC (3.80-5.40) m/uL Hgb (11.4-16.0) gm/dL Hct (34.0-46.0) % MCV (80.0-100.0) fL MCH (25.0-35.0) pg MCHC (31.0-37.0) g/dL RDW (11.5-15.5) % Plt Count (150-450) k/uL MPV Neutrophils % % Lymphocytes % % Monocytes % % Eosinophils % % Basophils % % Neutrophils # (1.3-7.7) k/uL Lymphocytes # (1.0-4.8) k/uL Monocytes # (0-1.0) k/uL Eosinophils # (0-0.7) k/uL Basophils # (0-0.2) k/uL PT (9.0-12.0) sec INR (<1.2) APTT (22.0-30.0) sec D-Dimer (<0.60) mg/L FEU Sodium (137-145) mmol/L Potassium (3.5-5.1) mmol/L Chloride (98-107) mmol/L Carbon Dioxide (22-30) mmol/L Anion Gap mmol/L BUN (7-17) mg/dL Creatinine (0.52-1.04) mg/dL Est GFR (CKD-EPI)AfAm (>60 ml/min/1.73 sqM) Est GFR (CKD-EPI)NonAf (>60 ml/min/1.73 sqM) Glucose (74-99) mg/dL POC Glucose (mg/dL) (75-99) mg/dL POC Glu Content Administrator ID Lactic Ac Sepsis Rflx Plasma Lactic Acid Shree (0.7-2.0) mmol/L Calcium (8.4-10.2) mg/dL Magnesium (1.6-2.3) mg/dL Total Bilirubin (0.2-1.3) mg/dL AST (14-36) U/L ALT (4-34) U/L Alkaline Phosphatase (38-126) U/L Troponin I (0.000-0.034) ng/mL Total Protein (6.3-8.2) g/dL Albumin (3.5-5.0) g/dL Urine Color Urine Appearance (Clear) Urine pH (5.0-8.0) Ur Specific [place] (1.001-1.035) Urine Protein (Negative) Urine Glucose (UA) (Negative) Urine Ketones (Negative) Urine Blood (Negative) Urine Nitrite (Negative) Urine Bilirubin (Negative) Urine Urobilinogen (<2.0) mg/dL Ur Leukocyte Esterase (Negative) Urine RBC (0-5) /hpf Urine WBC (0-5) /hpf Ur Squamous Epith Cells (0-4) /hpf Urine Bacteria (None) /hpf Hyaline Casts (0-2) /lpf Urine Mucus (None) /hpf Urine HCG, Qual Not Detected (Not Detectd) Coronavirus (PCR) (Not Detectd) - EKG Data -: EKG Interpreted by Me EKG Comments: 12-lead Electrocardiogram Interpretation Note EKG was reviewed and interpreted by myself. 12-lead ECG performed at 2343 is interpreted by me as revealing normal sinus rhythm at a rate of default value beats per minute. [place] is normal. MN interval is 159 ms, QRS duration is 80 ms, QTc is 441 ms.. There were no ST or T wave abnormalities to suggest myocardial ischemia or injury. R wave progression across the precordium was satisfactory. By my interpretation this EKG is non-diagnostic for acute ischemia. Disposition Clinical Impression: Near syncope, Elevated d-dimer, Dehydration, Diarrhea Disposition: ADMITTED IP TO THIS [facility] Condition: Serious Referrals: Raul Phillips MD [Primary Care Provider] - 1-2 days
[2021-07-29] MEDS ORDERED: LOPERAMIDE 2 MG CAP PO STA (01:41)
--- NOTE | 2021-07-29 02:54 | CT ---
EXAMINATION TYPE: CT abdomen pelvis wo con DATE OF EXAM: 07/29/2021 COMPARISON: None HISTORY: abdominal cramping. had PE done earlier. no new contrast given at this time. no prior on PACS CT DLP: 641.6 mGycm Automated exposure control for dose reduction was used. Images obtained from the diaphragm to the floor the pelvis with no contrast. The lung bases are clear. There is no pleural effusion. Heart size is normal. There is no pericardial effusion. There are right lateral breast implants. Liver spleen and stomach pancreas and gallbladder appear normal. The bile ducts are not dilated. There is no adrenal mass. Kidneys of normal size. There is no hydronephrosis. There is contrast in th e kidneys from chest CT scan yesterday. There is no retroperitoneal adenopathy. There is contrast in the urinary bladder. Uterus is anteverte d. There is no evidence of pelvic mass. Appendix not seen. No centrally thickened appendix. The lumbar vertebrae have normal alignment. Disc spaces are fairly normal. There is no compression fr acture. The bony pelvis is intact. Hip joints are intact. IMPRESSION: Negative CT scan abdomen and pelvis.
[2021-07-29 04:34] LABS: HGB 11.2 gm/dL (11.4-16.0); Hypochromasia Slight; MCHC 31.9 g/dL (31.0-37.0); MCV 90.8 fL (80.0-100.0); Platelet Count 272 k/uL (150-450); RBC 3.86 m/uL (3.80-5.40); RDW 14.6 % (11.5-15.5); WBC 11.2 k/uL (3.8-10.6)
[2021-07-29 08:34] LABS: Glucose,Whole Blood 128 mg/dL (75-99)
[2021-07-29] MEDS ORDERED: ENOXAPARIN 40 MG/0.4 ML SYRINGE SQ SCH (09:00)
--- NOTE | 2021-07-29 09:06 | US ---
EXAMINATION TYPE: US venous doppler duplex LE BI DATE OF EXAM: 07/29/2021 7:52 AM COMPARISON: NONE CLINICAL HISTORY: evaluate for dvt. Elevated D-dimer, Sob SIDE PERFORMED: Bilateral TECHNIQUE: The lower extremity deep venous system is examined utilizing real time linear array sonog ksenia with graded compression, doppler sonography and color-flow sonography. VESSELS IMAGED: Common Femoral Vein Deep Femoral Vein Greater Saphenous Vein * Femoral Vein Popliteal Vein Small Saphenous Vein * Proximal Calf Veins (* superficial vessels) Right Leg: Negative for DVT Left Leg: Negative for DVT No DVT seen, Anechoic area seen in pop fossa possible wright cyst measuring 3.1 x 1.0 x 2.0cm IMPRESSION: 1. No diagnostic evidence of DVT as visualized. 2. Correlate for popliteal fossa cyst. Follow-up MRI could BE obtained as clinically warranted.
[2021-07-29] MEDS: INSULIN ASPART (NovoLOG) 100 UNIT/ML VIAL SQ SCH ×4 (09:09→20:21)
--- NOTE | 2021-07-29 09:27 | P.HPIM ---
History of Present Illness This is a pleasant 55 years old female with past medical history of diabetes mellitus, hyperlipidemia, hypertension. Presents because of feeling dizzy/lightheaded, nausea, diaphoretic, diarrhea with bright red bloody stool. Patient works as a nurse at [employer]. She was working yesterday when she started having these symptoms of episodic lightheadedness, sweating and very short of breath and she has to sit down, she was hypotensive and blood pressure checked at the snf was 58/30. Her oxygen saturation was 89% on room air. Also patient has been complaining of from some abdominal cramps mainly in the lower abdomen. She denies any chest pain or dyspnea or coughing. No urinary symptoms. No headache or weakness or numbness. No seizure-like activity. No fever. She denies smoking, she drinks alcohol twice a week. Occasional use of marijuana. Patient denies recent NSAID uptake. On the presentation patient was hypotensive 86/42, blood pressure improved to 133/71. Chest all vitals looks stable and patient is afebrile. 11.2. Rest of CBC is unremarkable. D-dimer is elevated more than 34. elevated lactic acid came back to normal at 1.9, creatinine slightly elevated at 1.19. Baseline is 0.6-0.7. Liver enzymes moderately elevated with AST 59 and ALT 126, total bilirubin is normal 0.6. Troponin less than 0.012. Occult blood in the stool is positive. Coronavirus not detected. Urine analysis looks concentrated sample with no evidence of infection. CTA of the chest: No evidence of pulmonary embolism. Fatty infiltration of the liver. Abdomen and pelvis CT without contrast is negative for acute findings. Chest x-ray: No acute process. The emergency room patient received normal saline and aspirin 324 mg 1 with heel seam rubber team been consulted. surgery team were consulted as well Review of Systems CONSTITUTIONAL: No fever, no malaise, no fatigue. HEENT: No recent visual problems or hearing problems. Denied any sore throat. CARDIOVASCULAR: No orthopnea, PND, no palpitations, no syncope. PULMONARY: No shortness of breath, no cough, no hemoptysis. GASTROINTESTINAL: No diarrhea, no nausea, no vomiting, no abdominal pain. Normoactive bowel sounds. NEUROLOGICAL: No headaches, no weakness, no numbness. HEMATOLOGICAL: Denies any bleeding or petechiae. GENITOURINARY: Denies any burning micturition, frequency, or urgency. MUSCULOSKELETAL/RHEUMATOLOGICAL: Denies any joint pain, swelling, or any muscle pain. ENDOCRINE: Denies any polyuria or polydipsia. Past Medical History Past Medical History: Diabetes Mellitus, Hypertension History of Any Multi-Drug Resistant Organisms: None Reported Past Surgical History: No Surgical Hx Reported Past Psychological History: No Psychological Hx Reported Smoking Status: Never smoker Past Alcohol Use History: Occasional Past Drug Use History: Marijuana Medications and Allergies Home Medications Medication Instructions Recorded Confirmed Type Omeprazole 40 mg PO DAILY 07/31/20 07/28/21 History lisinopriL [Zestril] 10 mg PO DAILY 07/31/20 07/28/21 History Atorvastatin Calcium [Lipitor] 10 mg PO HS 12/07/20 07/28/21 History metFORMIN HCL ER [Glucophage Xr] 500 mg PO W/SUPPER 12/07/20 07/28/21 History Allergies Allergy/AdvReac Type Severity Reaction Status Date / Time Sulfa (Sulfonamide Allergy Rash/Hives Verified 07/28/21 23:11 Antibiotics) Physical Exam Vitals: Vital Signs Temp Pulse Resp BP Pulse Ox 07/29/21 02:00 97.9 F 68 17 99 07/29/21 00:00 97.5 F L 68 17 133/71 96 07/28/21 21:20 97.5 F L 74 18 86/42 100 Intake and Output 07/28/21 07/28/21 07/29/21 14:59 22:59 06:59 Other: Weight 81.647 kg GENERAL: The patient is alert and oriented x3, not in any acute distress. Well developed, well nourished. HEENT: Pupils are round and equally reacting to light. EOMI. No scleral icterus. No conjunctival pallor. Normocephalic, atraumatic. No pharyngeal erythema. No thyromegaly. CARDIOVASCULAR: S1 and S2 present. No murmurs, rubs, or gallops. PULMONARY: Chest is clear to auscultation, no wheezing or crackles. -ABDOMEN: Soft, LLQ tenderness, nondistended, normoactive bowel sounds. No palpable organomegaly. MUSCULOSKELETAL: No joint swelling or deformity. EXTREMITIES: No cyanosis, clubbing, or pedal edema. NEUROLOGICAL: Gross neurological examination did not reveal any focal deficits. SKIN: No rashes. No petechiae Results CBC & Chem 7: 07/29/21 03:48 07/28/21 21:49 Labs: Abnormal Lab Results - Last 24 Hours (Table) 07/28/21 07/28/21 07/28/21 Range/Units 21:49 21:49 21:49 WBC 18.3 H (3.8-10.6) k/uL Hgb (11.4-16.0) gm/dL Neutrophils # 14.0 H (1.3-7.7) k/uL APTT 19.8 L (22.0-30.0) sec D-Dimer >34.10 H (<0.60) mg/L FEU BUN 19 H (7-17) mg/dL Creatinine 1.19 H (0.52-1.04) mg/dL Glucose 146 H (74-99) mg/dL POC Glucose (mg/dL) (75-99) mg/dL Plasma Lactic Acid Shree (0.7-2.0) mmol/L Calcium 10.5 H (8.4-10.2) mg/dL AST 59 H (14-36) U/L ALT 126 H (4-34) U/L Ur Specific [place] (1.001-1.035) Urine Protein (Negative) Urine Bacteria (None) /hpf Hyaline Casts (0-2) /lpf Urine Mucus (None) /hpf Stool Occult Blood (Negative) 07/28/21 07/28/21 07/29/21 Range/Units 21:49 22:37 00:00 WBC (3.8-10.6) k/uL Hgb (11.4-16.0) gm/dL Neutrophils # (1.3-7.7) k/uL APTT (22.0-30.0) sec D-Dimer (<0.60) mg/L FEU BUN (7-17) mg/dL Creatinine (0.52-1.04) mg/dL Glucose (74-99) mg/dL POC Glucose (mg/dL) 124 H (75-99) mg/dL Plasma Lactic Acid Shree 2.9 H* (0.7-2.0) mmol/L Calcium (8.4-10.2) mg/dL AST (14-36) U/L ALT (4-34) U/L Ur Specific [place] 1.048 H (1.001-1.035) Urine Protein 1+ H (Negative) Urine Bacteria Occasional H (None) /hpf Hyaline Casts 9 H (0-2) /lpf Urine Mucus Rare H (None) /hpf Stool Occult Blood (Negative) 07/29/21 07/29/21 07/29/21 Range/Units 01:12 02:00 03:48 WBC 11.2 H (3.8-10.6) k/uL Hgb 11.2 L (11.4-16.0) gm/dL Neutrophils # (1.3-7.7) k/uL APTT (22.0-30.0) sec D-Dimer (<0.60) mg/L FEU BUN (7-17) mg/dL Creatinine (0.52-1.04) mg/dL Glucose (74-99) mg/dL POC Glucose (mg/dL) (75-99) mg/dL Plasma Lactic Acid Shree 2.5 H* (0.7-2.0) mmol/L Calcium (8.4-10.2) mg/dL AST (14-36) U/L ALT (4-34) U/L Ur Specific [place] (1.001-1.035) Urine Protein (Negative) Urine Bacteria (None) /hpf Hyaline Casts (0-2) /lpf Urine Mucus (None) /hpf Stool Occult Blood Positive H (Negative) Assessment and Plan Assessment: Dizziness and light headedness, most likely secondary to hypotension and diarrhea Normochromic normocytic anemia with positive occult blood in stool, rule out GI bleed Abdominal cramps, could be related to her diverticular disease, or nonspecific Hypovolemia and dehydration, improved Kidney injury Diabetes mellitus Hypertension Hyperlipidemia Plan: This is a pleasant 55 E. female who presents with bloody diarrhea and no syncope Continue with IV hydration, Protonix and anemia workup Surgery team consult, hold metformin, follow-up with insulin sliding scale. Hold lisinopril and monitor blood pressure check echocardiogram Follow-up ultrasound of the leg Maternal Fetal Physician tomorrow already consulted for near-syncope, we will follow-up. Labs and medication were reviewed.. Continue same treatment. Continue with symptomatic treatment. Resume home medication. Monitor lytes and vitals. DVT and GI prophylaxis. Further recommendations depends on the clinical course of the patient DVT prophylaxis: no Subcutaneous heparin For possible GI bleed GI Prophylaxis: Ppi Prognosis is guarded
[2021-07-29] MEDS: PANTOPRAZOLE 40 MG/10 ML VIAL IVP SCH (10:06)
[2021-07-29 10:10] LABS: % Iron Saturation 14.76 (12.00-45.00); Iron 71 ug/dL (50-170); Total Iron Binding Capacity 483 ug/dL (228-460)
--- NOTE | 2021-07-29 10:23 | P.GSCN ---
<Angela Reynolds - Last Filed: 07/29/21 11:44> History of Present Illness Consult date: 07/29/21 Reason for Consult: Possible lower GI bleed History of present illness: CHIEF COMPLAINT: Syncope, heart palpitations, diarrhea with lower GI bleed HISTORY OF PRESENT ILLNESS: This 55-year-old female who was at work yesterday evening and started having heart palpitations feeling very dizzy and nearly passing out. She states she also started having abdominal cramping followed by diarrhea. She states she had several episodes of diarrhea and then came into the emergency room for further evaluation. When she came here to the emergency room she states that she continued to have abdominal cramping and then followed by bright red blood per rectum. She's had several episodes. She denies any previous history of similar symptoms. He denies any history of Crohn's or colitis, no history of irritable bowel syndrome. Denies any previous EGD or c olonoscopy. She denies any anticoagulation or NSAIDs. She states she did not have any fevers or chills. No recent sick contacts. She does continue to have abdominal cramping. She had a CT of the abdomen and pelvis of the abdomen and pelvis. On admission she was noted to have an elevated d-dimer, she had a CT angiogram of the chest that was negative for pulmonary embolism. Venous duplex of lower extremities negative for DVT 2. Cardiology on consult to see patient regarding her palpitations, and near syncope episode. Patient noted have leukocytosis on admission with a WBC of 18.3, hemoglobin 14.1 repeat labs today WBC 11.2 and hemoglobin dropped to 11.2. Patient also had a plastic model lactic acid at 2. 9 repeat today 1.9. Stool occult blood positive. Patient was hypotensive on admission. PAST MEDICAL HISTORY: Diabetes mellitus, hypertension PAST SURGICAL HISTORY: No surgical history MEDICATIONS: See list. ALLERGIES: See list. SOCIAL HISTORY: No illicit drug use. REVIEW OF SYSTEMS: CONSTITUTIONAL: Denies fever or chills. HEENT: Denies blurred vision, vision changes, or eye pain. Denies hemoptysis CARDIOVASCULAR: Denies chest pain or pressure. heart palpitations, syncopal episode. RESPIRATORY: No shortness of breath. GASTROINTESTINAL: See HPI for pertinent findings HEMATOLOGIC: Denies bleeding disorders. GENITOURINARY: Denies any blood in urine or increased urinary frequency. SKIN: Denies pruitis. Denies rash. PHYSICAL EXAM: VITAL SIGNS: Reviewed GENERAL: Well-developed in no acute distress. HEENT: No sclera icterus. Extraocular movements grossly intact. Moist buccal mucosa. Head is atraumatic, normocephalic. No nasal drainage. ABDOMEN: Soft. Nondistended. Tenderness with palpation along the lower abdomen. NEUROLOGIC: Alert and oriented. Cranial nerves II through XII grossly intact. LABORATORY DATA: WBC 11.2 hemoglobin 11.2 hematocrit 35 platelet count 272,000 and INR 0.9 d- dimer greater than 34.10 Sodium 140 potassium 3.9 BUN 19 creatinine 1.19 glucose 128 Iron 71 TIBC 483% saturation 14.7 tenths. 345 ferritin 150 vitamin B12 1147 Total bilirubin 0.6 AST 59 ALT 126 alk phos 94 Stool occult blood positive IMAGING: CT abdomen and pelvis without contrast: Negative computed tomography scan abdomen and pelvis. Chest x-ray: Normal chest. No change Chest CT angiogram: No evidence of pulmonary embolism. Fatty infiltration of liver. ASSESSMENT: 1. Lower GI bleed, symptoms could be related to colitis, possible etiologies include infectious, ischemic, or inflammatory, however inflammatory less likely. 2. Abdominal cramping 3. Diarrhea 4. Leukocytosis 5. Heart palpitations 6. Near syncope PLAN: 1. Change to clear liquid diet 2. Start IV Zosyn 3. Obtain stool culture, C. diff 4. Antiemetics as needed 5. Protonix for GI prophylaxis 6. Await cardiology consultation, recommendations 7. Further recommendations forthcoming per surgeon Thank you for this consultation, we will continue to follow. The impression and plan of care has been dictated as directed. Dr. Molina I performed a history and examination of this patient, discussed the same with the dictator. I agree with the dictator's note ,documented as a scribe. Any additional findings or plans will be noted. Past Medical History Past Medical History: Diabetes Mellitus, Hypertension History of Any Multi-Drug Resistant Organisms: None Reported Past Surgical History: No Surgical Hx Reported Past Psychological History: No Psychological Hx Reported Smoking Status: Never smoker Past Alcohol Use History: Occasional Past Drug Use History: Marijuana Medications and Allergies Home Medications Medication Instructions Recorded Confirmed Type Omeprazole 40 mg PO DAILY 07/31/20 07/28/21 History lisinopriL [Zestril] 10 mg PO DAILY 07/31/20 07/28/21 History Atorvastatin Calcium [Lipitor] 10 mg PO HS 12/07/20 07/28/21 History metFORMIN HCL ER [Glucophage Xr] 500 mg PO W/SUPPER 12/07/20 07/28/21 History Allergies Allergy/AdvReac Type Severity Reaction Status Date / Time Sulfa (Sulfonamide Allergy Rash/Hives Verified 07/28/21 23:11 Antibiotics) Surgical - Exam Vital Signs Temp Pulse Resp BP Pulse Ox 97.5 F L 74 18 86/42 100 07/28/21 21:20 07/28/21 21:20 07/28/21 21:20 07/28/21 21:20 07/28/21 21:20 Results - Labs 07/29/21 03:48 07/28/21 21:49 Abnormal Lab Results - Last 24 Hours (Table) 07/28/21 07/28/21 07/28/21 Range/Units 21:49 21:49 21:49 WBC 18.3 H (3.8-10.6) k/uL Hgb (11.4-16.0) gm/dL Neutrophils # 14.0 H (1.3-7.7) k/uL APTT 19.8 L (22.0-30.0) sec D-Dimer >34.10 H (<0.60) mg/L FEU BUN 19 H (7-17) mg/dL Creatinine 1.19 H (0.52-1.04) mg/dL Glucose 146 H (74-99) mg/dL POC Glucose (mg/dL) (75-99) mg/dL Plasma Lactic Acid Shree (0.7-2.0) mmol/L Calcium 10.5 H (8.4-10.2) mg/dL AST 59 H (14-36) U/L ALT 126 H (4-34) U/L Ur Specific [place] (1.001-1.035) Urine Protein (Negative) Urine Bacteria (None) /hpf Hyaline Casts (0-2) /lpf Urine Mucus (None) /hpf Stool Occult Blood (Negative) 07/28/21 07/28/21 07/29/21 Range/Units 21:49 22:37 00:00 WBC (3.8-10.6) k/uL Hgb (11.4-16.0) gm/dL Neutrophils # (1.3-7.7) k/uL APTT (22.0-30.0) sec D-Dimer (<0.60) mg/L FEU BUN (7-17) mg/dL Creatinine (0.52-1.04) mg/dL Glucose (74-99) mg/dL POC Glucose (mg/dL) 124 H (75-99) mg/dL Plasma Lactic Acid Shree 2.9 H* (0.7-2.0) mmol/L Calcium (8.4-10.2) mg/dL AST (14-36) U/L ALT (4-34) U/L Ur Specific [place] 1.048 H (1.001-1.035) Urine Protein 1+ H (Negative) Urine Bacteria Occasional H (None) /hpf Hyaline Casts 9 H (0-2) /lpf Urine Mucus Rare H (None) /hpf Stool Occult Blood (Negative) 07/29/21 07/29/21 07/29/21 Range/Units 01:12 02:00 03:48 WBC 11.2 H (3.8-10.6) k/uL Hgb 11.2 L (11.4-16.0) gm/dL Neutrophils # (1.3-7.7) k/uL APTT (22.0-30.0) sec D-Dimer (<0.60) mg/L FEU BUN (7-17) mg/dL Creatinine (0.52-1.04) mg/dL Glucose (74-99) mg/dL POC Glucose (mg/dL) (75-99) mg/dL Plasma Lactic Acid Shree 2.5 H* (0.7-2.0) mmol/L Calcium (8.4-10.2) mg/dL AST (14-36) U/L ALT (4-34) U/L Ur Specific [place] (1.001-1.035) Urine Protein (Negative) Urine Bacteria (None) /hpf Hyaline Casts (0-2) /lpf Urine Mucus (None) /hpf Stool Occult Blood Positive H (Negative) Diabetes panel 07/28/21 Range/Units 21:49 Sodium 140 (137-145) mmol/L Potassium 3.9 (3.5-5.1) mmol/L Chloride 103 (98-107) mmol/L Carbon Dioxide 26 (22-30) mmol/L BUN 19 H (7-17) mg/dL Creatinine 1.19 H (0.52-1.04) mg/dL Glucose 146 H (74-99) mg/dL Calcium 10.5 H (8.4-10.2) mg/dL AST 59 H (14-36) U/L ALT 126 H (4-34) U/L Alkaline Phosphatase 94 (38-126) U/L Total Protein 7.9 (6.3-8.2) g/dL Albumin 4.9 (3.5-5.0) g/dL Calcium panel 07/28/21 Range/Units 21:49 Calcium 10.5 H (8.4-10.2) mg/dL Albumin 4.9 (3.5-5.0) g/dL Pituitary panel 07/28/21 Range/Units 21:49 Sodium 140 (137-145) mmol/L Potassium 3.9 (3.5-5.1) mmol/L Chloride 103 (98-107) mmol/L Carbon Dioxide 26 (22-30) mmol/L BUN 19 H (7-17) mg/dL Creatinine 1.19 H (0.52-1.04) mg/dL Glucose 146 H (74-99) mg/dL Calcium 10.5 H (8.4-10.2) mg/dL Adrenal panel 07/28/21 Range/Units 21:49 Sodium 140 (137-145) mmol/L Potassium 3.9 (3.5-5.1) mmol/L Chloride 103 (98-107) mmol/L Carbon Dioxide 26 (22-30) mmol/L BUN 19 H (7-17) mg/dL Creatinine 1.19 H (0.52-1.04) mg/dL Glucose 146 H (74-99) mg/dL Calcium 10.5 H (8.4-10.2) mg/dL Total Bilirubin 0.6 (0.2-1.3) mg/dL AST 59 H (14-36) U/L ALT 126 H (4-34) U/L Alkaline Phosphatase 94 (38-126) U/L Total Protein 7.9 (6.3-8.2) g/dL Albumin 4.9 (3.5-5.0) g/dL <Casey Molina Filed: 07/29/21 18:16> History of Present Illness History of present illness: I have personally seen and examined the patient, reviewed the BOILERMAKER APPRENTICE /PAs history, exam and MDM and agree with the assessment and plan as written. Based on total visit time, I have performed more than 50% of the visit. As above. Patient crampy abdominal pain that became bloody. No pain in between episodes of cramping. Feels better today. No nausea currently. Last bowel movement 2-3 hours ago. CAT scan reviewed. May be some inflammatory changes of the transverse and descending colon. Suspect possible ischemic colitis. Continue antibiotics. Continue clear liquids. Will follow. Surgical - Exam Vital Signs Temp Pulse Resp BP Pulse Ox 97.5 F L 74 18 86/42 100 07/28/21 21:20 07/28/21 21:20 07/28/21 21:20 07/28/21 21:20 07/28/21 21:20 Results - Labs 07/29/21 03:48 07/28/21 21:49 Abnormal Lab Results - Last 24 Hours (Table) 07/28/21 07/28/21 07/28/21 Range/Units 21:49 21:49 21:49 WBC 18.3 H (3.8-10.6) k/uL Hgb (11.4-16.0) gm/dL Neutrophils # 14.0 H (1.3-7.7) k/uL APTT 19.8 L (22.0-30.0) sec D-Dimer >34.10 H (<0.60) mg/L FEU BUN 19 H (7-17) mg/dL Creatinine 1.19 H (0.52-1.04) mg/dL Glucose 146 H (74-99) mg/dL POC Glucose (mg/dL) (75-99) mg/dL Plasma Lactic Acid Shree (0.7-2.0) mmol/L Calcium 10.5 H (8.4-10.2) mg/dL TIBC (228-460) ug/dL AST 59 H (14-36) U/L ALT 126 H (4-34) U/L Vitamin B12 (200.0-944.0) pg/mL Ur Specific [place] (1.001-1.035) Urine Protein (Negative) Urine Bacteria (None) /hpf Hyaline Casts (0-2) /lpf Urine Mucus (None) /hpf Stool Occult Blood (Negative) 07/28/21 07/28/21 07/28/21 Range/Units 21:49 21:49 22:37 WBC (3.8-10.6) k/uL Hgb (11.4-16.0) gm/dL Neutrophils # (1.3-7.7) k/uL APTT (22.0-30.0) sec D-Dimer (<0.60) mg/L FEU BUN (7-17) mg/dL Creatinine (0.52-1.04) mg/dL Glucose (74-99) mg/dL POC Glucose (mg/dL) 124 H (75-99) mg/dL Plasma Lactic Acid Shree 2.9 H* (0.7-2.0) mmol/L Calcium (8.4-10.2) mg/dL TIBC 483 H (228-460) ug/dL AST (14-36) U/L ALT (4-34) U/L Vitamin B12 1147.0 H (200.0-944.0) pg/mL Ur Specific [place] (1.001-1.035) Urine Protein (Negative) Urine Bacteria (None) /hpf Hyaline Casts (0-2) /lpf Urine Mucus (None) /hpf Stool Occult Blood (Negative) 07/29/21 07/29/21 07/29/21 Range/Units 00:00 01:12 02:00 WBC (3.8-10.6) k/uL Hgb (11.4-16.0) gm/dL Neutrophils # (1.3-7.7) k/uL APTT (22.0-30.0) sec D-Dimer (<0.60) mg/L FEU BUN (7-17) mg/dL Creatinine (0.52-1.04) mg/dL Glucose (74-99) mg/dL POC Glucose (mg/dL) (75-99) mg/dL Plasma Lactic Acid Shree 2.5 H* (0.7-2.0) mmol/L Calcium (8.4-10.2) mg/dL TIBC (228-460) ug/dL AST (14-36) U/L ALT (4-34) U/L Vitamin B12 (200.0-944.0) pg/mL Ur Specific [place] 1.048 H (1.001-1.035) Urine Protein 1+ H (Negative) Urine Bacteria Occasional H (None) /hpf Hyaline Casts 9 H (0-2) /lpf Urine Mucus Rare H (None) /hpf Stool Occult Blood Positive H (Negative) 07/29/21 07/29/21 07/29/21 Range/Units 03:48 08:23 11:43 WBC 11.2 H (3.8-10.6) k/uL Hgb 11.2 L (11.4-16.0) gm/dL Neutrophils # (1.3-7.7) k/uL APTT (22.0-30.0) sec D-Dimer (<0.60) mg/L FEU BUN (7-17) mg/dL Creatinine (0.52-1.04) mg/dL Glucose (74-99) mg/dL POC Glucose (mg/dL) 128 H 123 H (75-99) mg/dL Plasma Lactic Acid Shree (0.7-2.0) mmol/L Calcium (8.4-10.2) mg/dL TIBC (228-460) ug/dL AST (14-36) U/L ALT (4-34) U/L Vitamin B12 (200.0-944.0) pg/mL Ur Specific [place] (1.001-1.035) Urine Protein (Negative) Urine Bacteria (None) /hpf Hyaline Casts (0-2) /lpf Urine Mucus (None) /hpf Stool Occult Blood (Negative) 07/29/21 Range/Units 16:30 WBC (3.8-10.6) k/uL Hgb (11.4-16.0) gm/dL Neutrophils # (1.3-7.7) k/uL APTT (22.0-30.0) sec D-Dimer (<0.60) mg/L FEU BUN (7-17) mg/dL Creatinine (0.52-1.04) mg/dL Glucose (74-99) mg/dL POC Glucose (mg/dL) 114 H (75-99) mg/dL Plasma Lactic Acid Shree (0.7-2.0) mmol/L Calcium (8.4-10.2) mg/dL TIBC (228-460) ug/dL AST (14-36) U/L ALT (4-34) U/L Vitamin B12 (200.0-944.0) pg/mL Ur Specific [place] (1.001-1.035) Urine Protein (Negative) Urine Bacteria (None) /hpf Hyaline Casts (0-2) /lpf Urine Mucus (None) /hpf Stool Occult Blood (Negative) Diabetes panel 07/28/21 Range/Units 21:49 Sodium 140 (137-145) mmol/L Potassium 3.9 (3.5-5.1) mmol/L Chloride 103 (98-107) mmol/L Carbon Dioxide 26 (22-30) mmol/L BUN 19 H (7-17) mg/dL Creatinine 1.19 H (0.52-1.04) mg/dL Glucose 146 H (74-99) mg/dL Calcium 10.5 H (8.4-10.2) mg/dL AST 59 H (14-36) U/L ALT 126 H (4-34) U/L Alkaline Phosphatase 94 (38-126) U/L Total Protein 7.9 (6.3-8.2) g/dL Albumin 4.9 (3.5-5.0) g/dL Thyroid panel 07/29/21 Range/Units 03:48 TSH 0.998 (0.350-5.500) uIU/mL Calcium panel 07/28/21 Range/Units 21:49 Calcium 10.5 H (8.4-10.2) mg/dL Albumin 4.9 (3.5-5.0) g/dL Pituitary panel 07/28/21 07/29/21 Range/Units 21:49 03:48 Sodium 140 (137-145) mmol/L Potassium 3.9 (3.5-5.1) mmol/L Chloride 103 (98-107) mmol/L Carbon Dioxide 26 (22-30) mmol/L BUN 19 H (7-17) mg/dL Creatinine 1.19 H (0.52-1.04) mg/dL Glucose 146 H (74-99) mg/dL Calcium 10.5 H (8.4-10.2) mg/dL TSH 0.998 (0.350-5.500) uIU/mL Adrenal panel 07/28/21 Range/Units 21:49 Sodium 140 (137-145) mmol/L Potassium 3.9 (3.5-5.1) mmol/L Chloride 103 (98-107) mmol/L Carbon Dioxide 26 (22-30) mmol/L BUN 19 H (7-17) mg/dL Creatinine 1.19 H (0.52-1.04) mg/dL Glucose 146 H (74-99) mg/dL Calcium 10.5 H (8.4-10.2) mg/dL Total Bilirubin 0.6 (0.2-1.3) mg/dL AST 59 H (14-36) U/L ALT 126 H (4-34) U/L Alkaline Phosphatase 94 (38-126) U/L Total Protein 7.9 (6.3-8.2) g/dL Albumin 4.9 (3.5-5.0) g/dL
--- NOTE | 2021-07-29 11:04 | P.CRDCN ---
History of Present Illness Consult date: 07/29/21 History of present illness: HISTORY OF PRESENT ILLNESS: This is a 55-year-old female with a past medical history significant for hypertension, hyperlipidemia, and diabetes. 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 We have been asked to see the patient in consultation for near syncope and palpitations. Patient examined at the bedside. Patient states yesterday she was at work when she began having abdominal cramping and diarrhea. She states that she felt very hot and diaphoretic. She states that she thought she was going to pass out. Patient states her coworker took her blood pressure and she was found to have a systolic in the 50s. They also checked her oxygen saturations which she reports was 89%. The patient denies having an actual syncopal episode but does report that she felt like she was going to pass out. The patient's blood pressure was found to be on the lower side when she presented to the emergency room with a systolic in the 80s. The patient reports she has continued having diarrhea and recently it has become bloody. The patient also reports she has been having palpitations for the past few weeks. She states that she had an EKG performed at her PCP office which revealed sinus rhythm with PVCs. The patient also reports that she has noticed sometimes her heart rate is up into the 150s and she believes it is irregular. The patient reports a family history of coronary artery disease and states that her dad had a massive heart attack but is unsure what age. She also reports her brother had a heart attack when he was in his 20s. * EKG reveals sinus mechanism with no signs of acute ischemia * Chest xray negative for acute process * Chest CTA: Negative for pulmonary embolism * CT abdomen pelvis: Negative for acute process * Lower extremity Doppler: Negative for DVT bilaterally * Laboratory data: WBC 11.2. Hemoglobin 11.2. Platelet count 272. D-dimer greater than 34.10. Sodium 140. Potassium 3.9. BUN 19. Creatinine 1.19. Lactic acid 2.9. Repeat 1.9. Troponin negative 3. * Current home cardiac medications include lisinopril 10 mg daily and Lipitor 10 mg daily REVIEW OF SYSTEMS: At the time of my exam: CONSTITUTIONAL: Denies fever or chills. HEENT: Denies blurred vision, vision changes, or eye pain. Denies hemoptysis CARDIOVASCULAR: Denies chest pain. Denies orthopnea. Denies PND. Denies palpitations RESPIRATORY: Denies shortness of breath. GASTROINTESTINAL: Reports abdominal pain HEMATOLOGIC: Denies bleeding disorders. GENITOURINARY: Denies any blood in urine. SKIN: Denies pruitis. Denies rash. PHYSICAL EXAM: VITAL SIGNS: Reviewed. GENERAL: Well-developed in no acute distress. HEENT: Head is normocephalic. Pupils are equal, round. Sclerae anicteric. Mucous membranes of the mouth are moist. Neck supple. No JVD or thyromegaly LUNGS: Respirations even and unlabored. Lungs essentially clear to auscultation bilaterally. HEART: Regular rate and rhythm. S1 and S2 heard. ABDOMEN: Soft. Nondistended. + Tenderness EXTREMITIES: Normal range of motion. No clubbing or cyanosis. Peripheral pulses intact. No lower extremity edema NEUROLOGIC: Awake and alert. Oriented x 3. ASSESSMENT: Abdominal pain with bloody diarrhea Palpitations Presyncope, suspect secondary to hypotension Hypotension, systolic blood pressure in the 80s upon admission Leukocytosis Elevated lactic acid, improved with IV fluids Mildly elevated LFTs Elevated d-dimer, CTA negative for PE History of hypertension Hyperlipidemia Diabetes PLAN: Gen. surgery following. Await recommendations Continue to monitor blood pressure Obtain 2-D echo to assess cardiac structure and function Recommend event monitor at the time of discharge secondary to patient's palpitations Further recommendations pending patient course Nurse practitioner note has been reviewed by physician. Signing provider agrees with the documented findings, assessment, and plan of care. Past Medical History Past Medical History: Diabetes Mellitus, Hypertension History of Any Multi-Drug Resistant Organisms: None Reported Past Surgical History: No Surgical Hx Reported Past Psychological History: No Psychological Hx Reported Smoking Status: Never smoker Past Alcohol Use History: Occasional Past Drug Use History: Marijuana Medications and Allergies Home Medications Medication Instructions Recorded Confirmed Type Omeprazole 40 mg PO DAILY 07/31/20 07/28/21 History lisinopriL [Zestril] 10 mg PO DAILY 07/31/20 07/28/21 History Atorvastatin Calcium [Lipitor] 10 mg PO HS 12/07/20 07/28/21 History metFORMIN HCL ER [Glucophage Xr] 500 mg PO W/SUPPER 12/07/20 07/28/21 History Allergies Allergy/AdvReac Type Severity Reaction Status Date / Time Sulfa (Sulfonamide Allergy Rash/Hives Verified 07/28/21 23:11 Antibiotics) Physical Exam Vitals: Vital Signs Temp Pulse Pulse Resp BP BP Pulse Ox 07/29/21 08:35 98.1 F 07/29/21 08:28 84 152/83 99 07/29/21 02:00 97.9 F 68 17 99 07/29/21 00:00 97.5 F L 68 17 133/71 96 07/28/21 21:20 97.5 F L 74 18 86/42 100 Intake and Output 07/28/21 07/29/21 07/29/21 22:59 06:59 14:59 Other: Weight 81.647 kg Results 07/29/21 03:48 07/28/21 21:49 Cardiac Enzymes 07/28/21 07/28/21 07/29/21 Range/Units 21:49 21:49 03:48 AST 59 H (14-36) U/L Troponin I <0.012 <0.012 (0.000-0.034) ng/mL 07/29/21 Range/Units 06:06 AST (14-36) U/L Troponin I <0.012 (0.000-0.034) ng/mL Coagulation 07/28/21 Range/Units 21:49 PT 10.2 (9.0-12.0) sec APTT 19.8 L (22.0-30.0) sec CBC 07/28/21 07/29/21 Range/Units 21:49 03:48 WBC 18.3 H 11.2 H (3.8-10.6) k/uL RBC 4.87 3.86 (3.80-5.40) m/uL Hgb 14.1 11.2 L (11.4-16.0) gm/dL Hct 43.9 35.0 (34.0-46.0) % Plt Count 328 272 (150-450) k/uL Comprehensive Metabolic Panel 07/28/21 Range/Units 21:49 Sodium 140 (137-145) mmol/L Potassium 3.9 (3.5-5.1) mmol/L Chloride 103 (98-107) mmol/L Carbon Dioxide 26 (22-30) mmol/L BUN 19 H (7-17) mg/dL Creatinine 1.19 H (0.52-1.04) mg/dL Glucose 146 H (74-99) mg/dL Calcium 10.5 H (8.4-10.2) mg/dL AST 59 H (14-36) U/L ALT 126 H (4-34) U/L Alkaline Phosphatase 94 (38-126) U/L Total Protein 7.9 (6.3-8.2) g/dL Albumin 4.9 (3.5-5.0) g/dL Current Medications Generic Name Dose Route Start Last Admin Trade Name Freq PRN Reason Stop Dose Admin Atorvastatin Calcium 10 mg 07/29/21 21:00 Atorvastatin 10 Mg Tab PO HS PARVIZ Sodium Chloride 1,000 mls @ 100 mls/hr 07/29/21 00:33 07/29/21 00:45 Saline 0.9% IV 07/29/21 10:32 100 mls/hr .Q10H STA Administration Sodium Chloride 1,000 mls @ 75 mls/hr 07/29/21 08:30 Saline 0.9% IV .[id number] PARVIZ Piperacillin Sod/Tazobactam 100 mls @ 25 mls/hr 07/29/21 09:30 Sod 3.375 gm/ Sodium Chloride IVPB Q12HR PARVIZ Insulin Aspart 0 unit 07/29/21 07:30 07/29/21 09:09 Insulin Aspart (Novolog) 100 Unit/Ml Vial SQ Not Given ACHS PARVIZ Protocol Naloxone HCl 0.2 mg 07/29/21 00:34 Naloxone 0.4 Mg/Ml 1 Ml Vial IV Q2M PRN Opioid Reversal Ondansetron HCl 4 mg 07/29/21 00:34 Ondansetron 4 Mg/2 Ml Vial IVP Q8HR PRN Nausea And Vomiting Pantoprazole Sodium 40 mg 07/29/21 09:00 Pantoprazole 40 Mg/10 Ml Vial IVP DAILY PARVIZ Intake and Output 07/28/21 07/29/21 07/29/21 22:59 06:59 14:59 Other: Weight 81.647 kg 07/29/21 03:48 07/28/21 21:49
[2021-07-29] MEDS: PIPERACILLIN-TAZOBACTAM 3.375 GM in SODIUM CHLORIDE 0.9% 100 ML IVPB SCH ×2 (11:06→20:21)
[2021-07-29] MEDS: SODIUM CHLORIDE 0.9% 1,000 ML IV SCH (11:06)
[2021-07-29 11:07] LABS: Folate, Serum >20.00 ng/mL (4.40-31.00)
--- NOTE | 2021-07-29 11:31 | ECHOF ---
Referral Reason: MEASUREMENTS -------- HEIGHT: 165.1 cm WEIGHT: 81.6 kg BP: RVIDd: 2.5 cm (< 3.3) IVSd: 0.8 cm (0.6 - 1.1) LVIDd: 5.1 cm (3.9 - 5.3) LVPWd: 0.8 cm (0.6 - 1.1) IVSs: 1.4 cm LVIDs: 3.4 cm LVPWs: 1.4 cm Ao Diam: 2.8 cm (2.0 - 3.7) AV Cusp: 1.9 cm (1.5 - 2.6) LA Diam: 3.0 cm (2.7 - 3.8) MV EXCURSION: 15.184 mm (> 18.000) MV EF SLOPE: 110 mm/s (70 - 150) EPSS: 0.8 cm MV E Nelson: 0.98 m/s MV DecT: 215 ms MV A Nelson: 1.01 m/s MV E/A Ratio: 0.97 RAP: 5.00 mmHg RVSP: 33.51 mmHg TAPSE: 26.72 mm FINDINGS -------- This was a technically adequate study. The left ventricular size is normal. Left ventricular wall thickness is normal. Overall left vent ricular systolic function is normal with, an EF between 55 - 60 %. The right ventricle is normal in size. The right ventricular systolic function is normal. The left atrial size is normal. The right atrial size is normal. The aortic valve is trileaflet and appears structurally normal. The mitral valve is normal. Mild mitral regurgitation is present. The tricuspid valve appears structurally normal. Mild tricuspid regurgitation present. Right vent ricular systolic pressure is normal at < 35 mmHg. There is no pulmonic regurgitation present. The aortic root size is normal. Normal inferior vena cava with normal inspiratory collapse consistent with estimated right atrial pre ssure of 5 mmHg. There is no pericardial effusion. CONCLUSIONS -------- 1. The left ventricular size is normal. 2. Left ventricular wall thickness is normal. 3. Overall left ventricular systolic function is normal with, an EF between 55 - 60 %. 4. The right ventricle is normal in size. 5. The right ventricular systolic function is normal. 6. Mild mitral regurgitation is present. 7. Mild tricuspid regurgitation present. 8. There is no pericardial effusion. BOWLING BALL FINISHER: Nichole Cooper RDCS
[2021-07-29 11:45] LABS: Glucose,Whole Blood 123 mg/dL (75-99)
[2021-07-29 16:32] LABS: Glucose,Whole Blood 114 mg/dL (75-99)
[2021-07-29 20:18] LABS: Basophils % (A) 0 %; Eosinophils # (A) 0.1 k/uL (0-0.7); Eosinophils % (A) 1 %; HCT 34.6 % (34.0-46.0); HGB 11.1 gm/dL (11.4-16.0); Hypochromasia Slight; Lymphocytes # (A) 2.2 k/uL (1.0-4.8); Lymphocytes % (A) 20 %; MCH 29.5 pg (25.0-35.0); MCHC 32.3 g/dL (31.0-37.0); MCV 91.4 fL (80.0-100.0); Mean Platelet Volume 8.3; Monocytes # (A) 0.5 k/uL (0-1.0); Monocytes % (A) 4 %; Neutrophils # (A) 8.2 k/uL (1.3-7.7); Neutrophils % (A) 73 %; Platelet Count 245 k/uL (150-450); RBC 3.78 m/uL (3.80-5.40); RDW 14.7 % (11.5-15.5); WBC 11.1 k/uL (3.8-10.6)
[2021-07-29 20:19] LABS: Glucose,Whole Blood 185 mg/dL (75-99)
[2021-07-29] MEDS: ATORVASTATIN 10 MG TAB PO SCH (20:21)
[2021-07-30] MEDS: SODIUM CHLORIDE 0.9% 1,000 ML IV SCH ×3 (01:27→23:41)
[2021-07-30 06:17] LABS: Glucose,Whole Blood 150 mg/dL (75-99)
[2021-07-30] MEDS: INSULIN ASPART (NovoLOG) 100 UNIT/ML VIAL SQ SCH ×4 (06:26→20:05)
[2021-07-30] MEDS: PANTOPRAZOLE 40 MG/10 ML VIAL IVP SCH (08:30)
[2021-07-30] MEDS: PIPERACILLIN-TAZOBACTAM 3.375 GM in SODIUM CHLORIDE 0.9% 100 ML IVPB SCH ×3 (08:30→23:41)
[2021-07-30 09:46] LABS: Basophils % (A) 0 %; Eosinophils # (A) 0.1 k/uL (0-0.7); Eosinophils % (A) 1 %; HCT 35.3 % (34.0-46.0); HGB 11.2 gm/dL (11.4-16.0); Hypochromasia Slight; Lymphocytes # (A) 2.3 k/uL (1.0-4.8); Lymphocytes % (A) 20 %; MCHC 31.7 g/dL (31.0-37.0); MCV 91.6 fL (80.0-100.0); Mean Platelet Volume 8.2; Monocytes # (A) 0.5 k/uL (0-1.0); Monocytes % (A) 5 %; Neutrophils # (A) 8.4 k/uL (1.3-7.7); Neutrophils % (A) 73 %; Platelet Count 240 k/uL (150-450); RBC 3.85 m/uL (3.80-5.40); RDW 14.3 % (11.5-15.5); WBC 11.5 k/uL (3.8-10.6)
[2021-07-30 09:59] LABS: African American GFR (CKD) >90 (>60 ml/min/1.73 sqM); Anion Gap 7 mmol/L; Blood Urea Nitrogen 8 mg/dL (7-17); Calcium 9.1 mg/dL (8.4-10.2); Carbon Dioxide 25 mmol/L (22-30); Chloride 106 mmol/L (98-107); Glucose 130 mg/dL (74-99); Non-African American GFR(CKD) >90 (>60 ml/min/1.73 sqM); Potassium 3.8 mmol/L (3.5-5.1); Sodium 138 mmol/L (137-145)
--- NOTE | 2021-07-30 10:12 | P.PN ---
Progress Note - Text Progress Note Date: 07/30/21 Patient states she has minimal abdominal pain. She's had continued bloody diarrhea. Her hemoglobin was 11.2. On exam vital signs are stable. Abdomen soft. Possible ischemic colitis. Patient will be scheduled for colonoscopy on Sunday. She'll continue supportive care.
[2021-07-30 12:16] LABS: Coronavirus SARS CoV-2 Not Detected (Not Detected)
[2021-07-30 12:21] LABS: Glucose,Whole Blood 123 mg/dL (75-99)
--- NOTE | 2021-07-30 15:07 | P.PN ---
Subjective This is a pleasant 55 years old female with past medical history of diabetes mellitus, hyperlipidemia, hypertension. Presents because of feeling dizzy/lightheaded, nausea, diaphoretic, diarrhea with bright red bloody stool. Patient works as a nurse at [employer]. She was working yesterday when she started having these symptoms of episodic ligh theadedness, sweating and very short of breath and she has to sit down, she was hypotensive and blood pressure checked at the long-term was 58/30. Her oxygen saturation was 89% on room air. Also patient has been complaining of from some abdominal cramps mainly in the lower abdomen. She denies any chest pain or dyspnea or coughing. No urinary symptoms. No headache or weakness or numbness. No seizure-like activity. No fever. She denies smoking, she drinks alcohol twice a week. Occasional use of marijuana. Patient denies recent NSAID uptake. On the presentation patient was hypotensive 86/42, blood pressure improved to 133/71. Chest all vitals looks stable and patient is afebrile. 11.2. Rest of CBC is unremarkable. D-dimer is elevated more than 34. elevated lactic acid came back to normal at 1.9, creatinine slightly elevated at 1.19. Baseline is 0.6-0.7. Liver enzymes moderately elevated with AST 59 and ALT 126, total bilirubin is normal 0.6. Troponin less than 0.012. Occult blood in the stool is positive. Coronavirus not detected. Urine analysis looks concentrated sample with no evidence of infection. CTA of the chest: No evidence of pulmonary embolism. Fatty infiltration of the liver. Abdomen and pelvis CT without contrast is negative for acute findings. Chest x-ray: No acute process. The emergency room patient received normal saline and aspirin 324 mg 1 with c ardiologist team been consulted. surgery team were consulted as well 07/30/2021 Patient clinically does not look much different than yesterday, fully awake and oriented tolerating liquid diet no abdominal pain but she still have bloody diarrhea actually it's more blood coming out of her rectum rather than diarrhea as patient describes. Hemoglobin stable at 11.2, WBCs stable at 11.5 despite she was started on Zosyn. Poorcalcitonin is still pending, I called the lab and check. Ischemic colitis is highly suspected with elevated d-dimer and brine room laborer on the case. Surgery team recommended colonoscopy on Sunday. Review of systems CONSTITUTIONAL: No fever, no malaise, no fatigue. HEENT: No recent visual problems or hearing problems. Denied any sore throat. CARDIOVASCULAR: No orthopnea, PND, no palpitations, no syncope. PULMONARY: No shortness of breath, no cough, no hemoptysis. GASTROINTESTINAL: No diarrhea, no nausea, no vomiting, no abdominal pain. Normoactive bowel sounds. NEUROLOGICAL: No headaches, no weakness, no numbness. HEMATOLOGICAL: Denies any bleeding or petechiae. Active Medications Generic Name Dose Route Start Last Admin Trade Name Freq PRN Reason Stop Dose Admin Atorvastatin Calcium 10 mg 07/29/21 21:00 07/29/21 20:21 Atorvastatin 10 Mg Tab PO 10 mg HS PARVIZ Administration Sodium Chloride 1,000 mls @ 75 mls/hr 07/29/21 08:30 07/30/21 01:27 Saline 0.9% IV Not Given .[id number] PARVIZ Piperacillin Sod/Tazobactam 100 mls @ 25 mls/hr 07/30/21 16:00 Sod 3.375 gm/ Sodium Chloride IVPB Q8HR PARVIZ Insulin Aspart 0 unit 07/29/21 07:30 07/30/21 12:49 Insulin Aspart (Novolog) 100 Unit/Ml Vial SQ Not Given ACHS [facility] Protocol Naloxone HCl 0.2 mg 07/29/21 00:34 Naloxone 0.4 Mg/Ml 1 Ml Vial IV Q2M PRN Opioid Reversal Ondansetron HCl 4 mg 07/29/21 00:34 Ondansetron 4 Mg/2 Ml Vial IVP Q8HR PRN Nausea And Vomiting Pantoprazole Sodium 40 mg 07/29/21 09:00 07/30/21 08:30 Pantoprazole 40 Mg/10 Ml Vial IVP 40 mg DAILY PARVIZ Administration Objective - Vital Signs Vital signs: Vital Signs Temp 97.5 F L 07/30/21 12:30 Pulse 78 07/30/21 12:30 Resp 17 07/30/21 12:30 BP 107/66 07/30/21 12:30 Pulse Ox 97 07/30/21 12:30 Intake & Output 07/29/21 07/30/21 07/30/21 18:59 06:59 18:59 Weight 81.647 kg Other: Voiding Method Toilet Toilet # Voids 3 # Bowel Movements 1 2 - Exam GENERAL: The patient is alert and oriented x3, not in any acute distress. Well developed, well nourished. HEENT: Pupils are round and equally reacting to light. EOMI. No scleral icterus. No conjunctival pallor. Normocephalic, atraumatic. No pharyngeal erythema. No thyromegaly. CARDIOVASCULAR: S1 and S2 present. No murmurs, rubs, or gallops. PULMONARY: Chest is clear to auscultation, no wheezing or crackles. ABDOMEN: Soft, nontender, nondistended, normoactive bowel sounds. No palpable organomegaly. MUSCULOSKELETAL: No joint swelling or deformity. EXTREMITIES: No cyanosis, clubbing, or pedal edema. NEUROLOGICAL: Gross neurological examination did not reveal any focal deficits. SKIN: No rashes. no petechiae. - Labs CBC & Chem 7: 07/30/21 08:47 07/30/21 08:47 Labs: Abnormal Lab Results - Last 24 Hours (Table) 07/29/21 07/29/21 07/29/21 Range/Units 16:30 19:32 20:06 WBC 11.1 H (3.8-10.6) k/uL RBC 3.78 L (3.80-5.40) m/uL Hgb 11.1 L (11.4-16.0) gm/dL Neutrophils # 8.2 H (1.3-7.7) k/uL Glucose (74-99) mg/dL POC Glucose (mg/dL) 114 H 185 H (75-99) mg/dL 07/30/21 07/30/21 07/30/21 Range/Units 06:00 08:47 08:47 WBC 11.5 H (3.8-10.6) k/uL RBC (3.80-5.40) m/uL Hgb 11.2 L (11.4-16.0) gm/dL Neutrophils # 8.4 H (1.3-7.7) k/uL Glucose 130 H (74-99) mg/dL POC Glucose (mg/dL) 150 H (75-99) mg/dL 07/30/21 Range/Units 12:20 WBC (3.8-10.6) k/uL RBC (3.80-5.40) m/uL Hgb (11.4-16.0) gm/dL Neutrophils # (1.3-7.7) k/uL Glucose (74-99) mg/dL POC Glucose (mg/dL) 123 H (75-99) mg/dL Assessment and Plan Assessment: Dizziness and light headedness, most likely secondary to hypotension and diarrhea Normochromic normocytic anemia with positive occult blood in stool, rule out GI bleed. Possible ischemic colitis. Less likely infectious colitis Abdominal cramps, could be related to her diverticular disease, or nonspecific Hypovolemia and dehydration, improved Kidney injury Diabetes mellitus Hypertension Hyperlipidemia Plan: This is a pleasant 55 E. female who presents with bloody diarrhea and no syncope Continue with IV hydration Protonix Surgery team consult, and a plan for coloscopy on Sunday hold metformin, follow-up with insulin sliding scale. Hold lisinopril and monitor blood pressure Continue with aspirin for possible ischemic colitis. Patient informed about her popliteal fossa cyst and the need for MRI as an outpatient and she agrees Retail Sales Associate already consulted for near-syncope, we will follow-up. Labs and medication were reviewed.. Continue same treatment. Continue with symptomatic treatment. Resume home medication. Monitor lytes and vitals. DVT and GI prophylaxis. Further recommendations depends on the clinical course of the patient DVT prophylaxis: no Subcutaneous heparin For possible GI bleed GI Prophylaxis: Ppi Prognosis is guarded
[2021-07-30 17:34] LABS: Glucose,Whole Blood 98 mg/dL (75-99)
[2021-07-30 20:01] LABS: Glucose,Whole Blood 114 mg/dL (75-99)
[2021-07-30] MEDS: ATORVASTATIN 10 MG TAB PO SCH (20:08)
[2021-07-31 07:24] LABS: Glucose,Whole Blood 122 mg/dL (75-99)
[2021-07-31] MEDS: INSULIN ASPART (NovoLOG) 100 UNIT/ML VIAL SQ SCH ×4 (08:54→21:01)
[2021-07-31] MEDS: PANTOPRAZOLE 40 MG/10 ML VIAL IVP SCH (08:55)
[2021-07-31] MEDS: PIPERACILLIN-TAZOBACTAM 3.375 GM in SODIUM CHLORIDE 0.9% 100 ML IVPB SCH ×3 (08:55→23:14)
--- NOTE | 2021-07-31 10:19 | P.PN ---
Subjective This is a 55-year-old female with a past medical history significant for hypertension, hyperlipidemia, and diabetes. Patient does not follow with a vacuum caster. We have been asked to see the patient in consultation for near syncope and palpitations. Patient examined at the bedside. Patient states yesterday she was at work when she began having abdominal cramping and diarrhea. She states that she felt very hot and diaphoretic. She states that she thought she was going to pass out. Patient states her coworker took her blood pressure and she was found to have a systolic in the 50s. They also checked her oxygen saturations which she reports was 89%. The patient denies having an actual syncopal episode but does report that she felt like she was going to pass out. The patient's blood pressure was found to be on the lower side when she presented to the emergency room with a systolic in the 80s. The patient reports she has continued having diarrhea and recently it has become bloody. The patient also reports she has been having palpitations for the past few weeks. She states that she had an EKG performed at her PCP office which revealed sinus rhythm with PVCs. The patient also reports that she has noticed sometimes her heart rate is up into the 150s and she believes it is irregular. The patient reports a family history of coronary artery disease and states that her dad had a massive heart attack but is unsure what age. She also reports her brother had a heart attack when he was in his 20s. * EKG reveals sinus mechanism with no signs of acute ischemia * Chest xray negative for acute process * Chest CTA: Negative for pulmonary embolism * CT abdomen pelvis: Negative for acute process * Lower extremity Doppler: Negative for DVT bilaterally * Laboratory data: WBC 11.2. Hemoglobin 11.2. Platelet count 272. D-dimer greater than 34.10. Sodium 140. Potassium 3.9. BUN 19. Creatinine 1.19. Lactic acid 2.9. Repeat 1.9. Troponin negative 3. * Current home cardiac medications include lisinopril 10 mg daily and Lipitor 10 mg daily 07/31 Patient seen and examined. Patient has been having off-and-on episodes of SVT w ith heart rates in the 120s to 140s for anywhere from 10 minutes up to a few hours. She omits the palpitations sensation during these episodes however no lightheadedness and no significant shortness breath. She is scheduled for EGD and possible colonoscopy tomorrow. Echo reviewed with preserved EF without significant valvular disease. Currently in SVT and attempted vagal maneuvers including carotid massage without any change. PHYSICAL EXAM: VITAL SIGNS: Reviewed. GENERAL: Well-developed in no acute distress. HEENT: Head is normocephalic. Pupils are equal, round. Sclerae anicteric. Mucous membranes of the mouth are moist. Neck supple. No JVD or thyromegaly LUNGS: Respirations even and unlabored. Lungs essentially clear to auscultation bilaterally. HEART: Regular rate and rhythm. S1 and S2 heard. ABDOMEN: Soft. Nondistended. + Tenderness EXTREMITIES: Normal range of motion. No clubbing or cyanosis. Peripheral pulses intact. No lower extremity edema NEUROLOGIC: Awake and alert. Oriented x 3. ASSESSMENT: Abdominal pain with bloody diarrhea Palpitations related to SVT SVT Presyncope, suspect secondary to hypotension Hypotension, systolic blood pressure in the 80s upon admission Leukocytosis Elevated lactic acid, improved with IV fluids Mildly elevated LFTs Elevated d-dimer, CTA negative for PE History of hypertension Hyperlipidemia Diabetes PLAN: Echo shows preserved EF without significant valvular disease. She is having recurrent episodes of SVT with heart rates in the 120s to 140s. Does not appear to have significant hemodynamic compromise and suspect syncope or related to GI source, dehydration, diarrhea. We will hold her home lisinopril and add Cardizem 30 mg every 6 hours . Likely transition to longer acting if tolerates Objective - Vital Signs Vital signs: Vital Signs Temp 98.7 F 07/31/21 04:19 Pulse 85 07/31/21 04:19 Resp 18 07/31/21 04:19 BP 108/71 07/31/21 04:19 Pulse Ox 96 07/31/21 04:19 Intake & Output 07/30/21 07/31/21 07/31/21 18:59 06:59 18:59 Intake Total 1600 Output Total 2 Balance -2 1600 Intake: Intake, IV Titration 1000 Amount Piperacillin-Tazobactam 3 100 .375 gm In Sodium Chloride 0.9% 100 ml @ 25 mls/hr IVPB Q8HR PARVIZ Rx# :[id number] Sodium Chloride 0.9% 1, 900 000 ml @ 75 mls/hr IV . [id number] PARVIZ Rx#:[id number] Oral 600 Output: Urine 2 Other: Voiding Method Toilet Toilet # Voids 2 2 # Bowel Movements 1 - Labs CBC & Chem 7: 07/30/21 08:47 07/30/21 08:47 Labs: Abnormal Lab Results - Last 24 Hours (Table) 07/30/21 07/30/21 07/31/21 Range/Units 12:20 20:00 07:17 POC Glucose (mg/dL) 123 H 114 H 122 H (75-99) mg/dL
[2021-07-31] MEDS: DILTIAZEM ORAL 30 MG TAB PO SCH ×4 (11:09→21:01)
--- NOTE | 2021-07-31 12:12 | P.PN ---
Progress Note - Text Progress Note Date: 07/31/21 Patient feels better. Her diarrhea is improved. She is still having some bloody bowel movements. On exam vital signs are stable. Abdomen soft. J bleed. Patient will be scheduled for colonoscopy in the a.m.
[2021-07-31 12:49] LABS: Glucose,Whole Blood 146 mg/dL (75-99)
[2021-07-31] MEDS: SODIUM CHLORIDE 0.9% 1,000 ML IV SCH (15:36)
--- NOTE | 2021-07-31 16:24 | P.PN ---
Subjective This is a pleasant 55 years old female with past medical history of diabetes mellitus, hyperlipidemia, hypertension. Presents because of feeling dizzy/lightheaded, nausea, diaphoretic, diarrhea with bright red bloody stool. Patient works as a nurse at [employer]. She was working yesterday when she started having these symptoms of episodic ligh theadedness, sweating and very short of breath and she has to sit down, she was hypotensive and blood pressure checked at the [facility] was 58/30. Her oxygen saturation was 89% on room air. Also patient has been complaining of from some abdominal cramps mainly in the lower abdomen. She denies any chest pain or dyspnea or coughing. No urinary symptoms. No headache or weakness or numbness. No seizure-like activity. No fever. She denies smoking, she drinks alcohol twice a week. Occasional use of marijuana. Patient denies recent NSAID uptake. On the presentation patient was hypotensive 86/42, blood pressure improved to 133/71. Chest all vitals looks stable and patient is afebrile. 11.2. Rest of CBC is unremarkable. D-dimer is elevated more than 34. elevated lactic acid came back to normal at 1.9, creatinine slightly elevated at 1.19. Baseline is 0.6-0.7. Liver enzymes moderately elevated with AST 59 and ALT 126, total bilirubin is normal 0.6. Troponin less than 0.012. Occult blood in the stool is positive. Coronavirus not detected. Urine analysis looks concentrated sample with no evidence of infection. CTA of the chest: No evidence of pulmonary embolism. Fatty infiltration of the liver. Abdomen and pelvis CT without contrast is negative for acute findings. Chest x-ray: No acute process. The emergency room patient received normal saline and aspirin 324 mg 1 with c ardiologist team been consulted. surgery team were consulted as well 07/30/2021 Patient clinically does not look much different than yesterday, fully awake and oriented tolerating liquid diet no abdominal pain but she still have bloody diarrhea actually it's more blood coming out of her rectum rather than diarrhea as patient describes. Hemoglobin stable at 11.2, WBCs stable at 11.5 despite she was started on Zosyn. Poorcalcitonin is still pending, I called the lab and check. Ischemic colitis is highly suspected with elevated d-dimer and cognos bi developer on the case. Surgery team recommended colonoscopy on Sunday. 07/31/2021 Patient was admitted with bloody diarrhea secondary to suspected infectious versus ischemic colitis, this morning she denies any abdominal pain and told me her diarrhea and bleeding per rectum as a stopped. Patient hemodynamically stable. Surgery team on the case and the planned for colonoscopy tomorrow. In the meantime patient remains on antibiotics per recommendation of surgery team, currently she is on Zosyn. Also she is on normal saline 75 mL/h. Lisinopril is on hold since admission. Cardizem 30 mg 4 times a day added today for suspected asymptomatic runs of SVT Repeat labs in the morning Objective - Vital Signs Vital signs: Vital Signs Temp 98.7 F 07/31/21 04:19 Pulse 85 07/31/21 04:19 Resp 18 07/31/21 04:19 BP 108/71 07/31/21 04:19 Pulse Ox 96 07/31/21 04:19 Intake & Output 07/30/21 07/31/21 07/31/21 18:59 06:59 18:59 Intake Total 1600 Output Total 2 Balance -2 1600 Intake: Intake, IV Titration 1000 Amount Piperacillin-Tazobactam 3 100 .375 gm In Sodium Chloride 0.9% 100 ml @ 25 mls/hr IVPB Q8HR PARVIZ Rx# :[id number] Sodium Chloride 0.9% 1, 900 000 ml @ 75 mls/hr IV . [id number] PARVIZ Rx#:[id number] Oral 600 Output: Urine 2 Other: Voiding Method Toilet Toilet # Voids 2 2 # Bowel Movements 1 - Exam GENERAL: The patient is alert and oriented x3, not in any acute distress. Well developed, well nourished. HEENT: Pupils are round and equally reacting to light. EOMI. No scleral icterus. No conjunctival pallor. Normocephalic, atraumatic. No pharyngeal erythema. No thyromegaly. CARDIOVASCULAR: S1 and S2 present. No murmurs, rubs, or gallops. PULMONARY: Chest is clear to auscultation, no wheezing or crackles. ABDOMEN: Soft, nontender, nondistended, normoactive bowel sounds. No palpable organomegaly. MUSCULOSKELETAL: No joint swelling or deformity. EXTREMITIES: No cyanosis, clubbing, or pedal edema. NEUROLOGICAL: Gross neurological examination did not reveal any focal deficits. SKIN: No rashes. no petechiae. - Labs CBC & Chem 7: 07/30/21 08:47 07/30/21 08:47 Labs: Abnormal Lab Results - Last 24 Hours (Table) 07/30/21 07/30/21 07/30/21 Range/Units 08:47 12:20 20:00 Glucose 130 H (74-99) mg/dL POC Glucose (mg/dL) 123 H 114 H (75-99) mg/dL 07/31/21 Range/Units 07:17 Glucose (74-99) mg/dL POC Glucose (mg/dL) 122 H (75-99) mg/dL Assessment and Plan Assessment: Dizziness and light headedness, most likely secondary to hypotension and diarrhea Normochromic normocytic anemia with positive occult blood in stool, rule out GI bleed. Possible ischemic colitis. Less likely infectious colitis few runs of SVT Abdominal cramps, could be related to her diverticular disease, or nonspecific Hypovolemia and dehydration, improved Kidney injury Diabetes mellitus Hypertension Hyperlipidemia Plan: This is a pleasant 55 E. female who presents with bloody diarrhea and no syncope Continue with IV hydration Protonix Surgery team consult, and a plan for coloscopy on Sunday hold metformin, follow-up with insulin sliding scale. Hold lisinopril and monitor blood pressure Cardizem is added for SVT by cardiology team will follow the patient closely Continue with aspirin for possible ischemic colitis. Patient informed about her popliteal fossa cyst and the need for MRI as an outpatient and she agrees Acupressure Therapist already consulted for near-syncope, we will follow-up. Labs and medication were reviewed.. Continue same treatment. Continue with symptomatic treatment. Resume home medication. Monitor lytes and vitals. DVT and GI prophylaxis. Further recommendations depends on the clinical course of the patient DVT prophylaxis: no Subcutaneous heparin For possible GI bleed GI Prophylaxis: Ppi Prognosis is guarded
[2021-07-31] MEDS ORDERED: PEG 3350-NA SULF,BICARB,CL/KCL 4,000 ML BOTTLE PO ONE (17:17)
[2021-07-31 17:43] LABS: Glucose,Whole Blood 81 mg/dL (75-99)
[2021-07-31 20:49] LABS: Glucose,Whole Blood 163 mg/dL (75-99)
[2021-07-31] MEDS: ATORVASTATIN 10 MG TAB PO SCH (21:01)
[2021-08-01] MEDS: SODIUM CHLORIDE 0.9% 1,000 ML IV SCH ×2 (03:53→17:44)
[2021-08-01 08:03] LABS: Glucose,Whole Blood 120 mg/dL (75-99)
[2021-08-01] MEDS: DILTIAZEM ORAL 30 MG TAB PO SCH ×4 (08:34→21:01)
[2021-08-01] MEDS: PANTOPRAZOLE 40 MG/10 ML VIAL IVP SCH (08:34)
[2021-08-01] MEDS: PIPERACILLIN-TAZOBACTAM 3.375 GM in SODIUM CHLORIDE 0.9% 100 ML IVPB SCH ×3 (08:34→23:22)
[2021-08-01] MEDS: INSULIN ASPART (NovoLOG) 100 UNIT/ML VIAL SQ SCH ×4 (08:37→20:42)
[2021-08-01 12:52] LABS: Glucose,Whole Blood 113 mg/dL (75-99)
[2021-08-01] MEDS ORDERED: PROPOFOL 10 MG/ML 20 ML VIAL IV ONE (13:41)
[2021-08-01] MEDS ORDERED: LIDOCAINE 1% INJ 10MG/ML (20 ML MDV) ONE (13:41)
[2021-08-01] MEDS ORDERED: SODIUM CHLORIDE 0.9% 1,000 ML IV ONE (13:41)
--- NOTE | 2021-08-01 14:39 | P.PCN ---
Date of Procedure: 08/01/21 Procedure(s) Performed: PREOPERATIVE DIAGNOSIS: Rectal bleeding POSTOPERATIVE DIAGNOSIS: Mild left sided colitis, suspect ischemic, diverticulosis PROCEDURE: Colonoscopy with biopsy ANESTHESIA: MAC SURGEON: Casey Molina M.D. SPECIMENS: Left colon ENDOSCOPIC PROCEDURE: The patient was placed on the endoscopy table in the left decubitus position. The Olympus colonoscope was inserted into the anus and passed under direct visualization to the base of the cecum. The appendiceal orifice was visualized. From that point the scope was slowly withdrawn inspecting all surfaces carefully. There were no neoplastic inflammatory or polypoid lesions throughout the cecum, ascending, or proximal transverse colon. As we approached with likely was the splenic flexure region there was noted to be a 20-30 cm segment of colitis. There was mucosal edema with superficial erosions, no active bleeding. No neoplastic changes. Random biopsies through that section took place. The distal colon and rectum appeared normal. There was mild diverticulosis seen as well. Digital rectal examination was normal. The patient was taken to the recovery room in stable condition per anesthesia guidelines. RECOMMENDATIONS: Left-sided colitis identified on endoscopy. Await biopsies. Continue antibiotics. This should be self-limited. Patient is already improving. May discharge later today or tomorrow per primary service. Would continue short course of oral antibiotics postdischarge.
--- NOTE | 2021-08-01 14:43 | P.PN ---
Subjective Progress Note Date: 08/01/21 HISTORY OF PRESENT ILLNESS: This is a 55-year-old female with a past medical history significant for hypertension, hyperlipidemia, and diabetes. Patient does not follow with a eye care professional. We have been asked to see the patient in consultation for near syncope and palpitations. Patient examined at the bedside. Patient states yesterday she was at work when she began having abdominal cramping and diarrhea. She states that she felt very hot and diaphoretic. She states that she thought she was going to pass out. Patient states her coworker took her blood pressure and she was found to have a systolic in the 50s. They also checked her oxygen saturations which she reports was 89%. The patient denies having an actual syncopal episode but does report that she felt like she was going to pass out. The patient's blood pressure was found to be on the lower side when she prese nted to the emergency room with a systolic in the 80s. The patient reports she has continued having diarrhea and recently it has become bloody. The patient also reports she has been having palpitations for the past few weeks. She states that she had an EKG performed at her PCP office which revealed sinus rhythm with PVCs. The patient also reports that she has noticed sometimes her heart rate is up into the 150s and she believes it is irregular. The patient reports a family history of coronary artery disease and states that her dad had a massive heart attack but is unsure what age. She also reports her brother had a heart attack when he was in his 20s. * EKG reveals sinus mechanism with no signs of acute ischemia * Chest xray negative for acute process * Chest CTA: Negative for pulmonary embolism * CT abdomen pelvis: Negative for acute process * Lower extremity Doppler: Negative for DVT bilaterally * Laboratory data: WBC 11.2. Hemoglobin 11.2. Platelet count 272. D-dimer greater than 34.10. Sodium 140. Potassium 3.9. BUN 19. Creatinine 1.19. Lactic acid 2.9. Repeat 1.9. Troponin negative 3. * Current home cardiac medications include lisinopril 10 mg daily and Lipitor 10 mg daily 07/31 Patient seen and examined. Patient has been having off-and-on episodes of SVT with heart rates in the 120s to 140s for anywhere from 10 minutes up to a few hours. She omits the palpitations sensation during these episodes however no lightheadedness and no significant shortness breath. She is scheduled for EGD and possible colonoscopy tomorrow. Echo reviewed with preserved EF without significant valvular disease. Currently in SVT and attempted vagal maneuvers including carotid massage without any change. 08/01/2021 Patient examined this afternoon at the bedside. Patient denies chest pain or pressure. She denies shortness of breath. No further episodes of SVT. Patient is scheduled for endoscopy today. Vital signs are stable. PHYSICAL EXAM: VITAL SIGNS: Reviewed. GENERAL: Well-developed in no acute distress. HEENT: Head is normocephalic. Pupils are equal, round. Sclerae anicteric. Mucous membranes of the mouth are moist. Neck supple. No JVD or thyromegaly LUNGS: Respirations even and unlabored. Lungs essentially clear to auscultation bilaterally. HEART: Regular rate and rhythm. S1 and S2 heard. EXTREMITIES: Normal range of motion. No clubbing or cyanosis. Peripheral pulses intact. No lower extremity edema ASSESSMENT: Abdominal pain with bloody diarrhea Palpitations SVT Presyncope, suspect secondary to hypotension Hypotension, systolic blood pressure in the 80s upon admission Leukocytosis Elevated lactic acid, improved with IV fluids Mildly elevated LFTs Elevated d-dimer, CTA negative for PE History of hypertension Hyperlipidemia Diabetes PLAN: Continue current cardiac medications Continue telemetry monitoring Patient scheduled for endoscopy today with general surgery Further recommendations pending patient course Nurse practitioner note has been reviewed by physician. Signing provider agrees with the documented findings, assessment, and plan of care. Objective - Vital Signs Vital signs: Vital Signs Temp 98.8 F 08/01/21 03:59 Pulse 76 08/01/21 08:38 Resp 18 08/01/21 03:59 BP 112/69 08/01/21 08:38 Pulse Ox 97 08/01/21 03:59 Intake & Output 07/31/21 08/01/21 08/01/21 18:59 06:59 18:59 Intake Total 1000 Balance 1000 Intake: Intake, IV Titration 1000 Amount Piperacillin-Tazobactam 3 100 .375 gm In Sodium Chloride 0.9% 100 ml @ 25 mls/hr IVPB Q8HR [facility] Rx# :[id number] Sodium Chloride 0.9% 1, 900 000 ml @ 75 mls/hr IV . [id number] [facility] Rx#:[id number] Oral 0 Other: Voiding Method Toilet # Voids 4 2 # Bowel Movements 0 4 - Labs CBC & Chem 7: 07/30/21 08:47 07/30/21 08:47 Labs: Abnormal Lab Results - Last 24 Hours (Table) 07/31/21 07/31/21 08/01/21 Range/Units 12:34 20:47 08:02 POC Glucose (mg/dL) 146 H 163 H 120 H (75-99) mg/dL
[2021-08-01 17:37] LABS: Glucose,Whole Blood 136 mg/dL (75-99)
[2021-08-01 19:55] LABS: Glucose,Whole Blood 195 mg/dL (75-99)
[2021-08-01] MEDS: ATORVASTATIN 10 MG TAB PO SCH (20:42)
[2021-08-02] MEDS: SODIUM CHLORIDE 0.9% 1,000 ML IV SCH (04:50)
[2021-08-02 05:20] VITALS: TEMP 97.9
[2021-08-02 07:15] LABS: Glucose,Whole Blood 120 mg/dL (75-99)
[2021-08-02] MEDS: INSULIN ASPART (NovoLOG) 100 UNIT/ML VIAL SQ SCH ×2 (07:31→12:45)
[2021-08-02] MEDS: PIPERACILLIN-TAZOBACTAM 3.375 GM in SODIUM CHLORIDE 0.9% 100 ML IVPB SCH (08:29)
[2021-08-02] MEDS: DILTIAZEM ORAL 30 MG TAB PO SCH (08:29)
[2021-08-02] MEDS: PANTOPRAZOLE 40 MG/10 ML VIAL IVP SCH (08:30)
[2021-08-02 08:43] VITALS: BP 122/73; PULSE 76; RESP 16
[2021-08-02 08:59] LABS: Basophils # (A) 0.02 X 10*3/uL (0.00-0.10); Basophils % (A) 0.4 %; Eosinophils # (A) 0.16 X 10*3/uL (0.04-0.35); Eosinophils % (A) 2.9 %; HCT 31.4 % (37.2-46.3); HGB 9.7 g/dL (12.0-15.0); Immature Grans, Automated 0.6 %; Lymphocytes # (A) 1.78 X 10*3/uL (0.90-5.00); Lymphocytes % (A) 32.7 %; MCH 27.7 pg (27.0-32.0); MCHC 30.9 g/dL (32.0-37.0); MCV 89.7 fL (80.0-97.0); Mean Platelet Volume 10.8 fL (9.5-12.2); Monocytes # (A) 0.37 X 10*3/uL (0.20-1.00); Monocytes % (A) 6.8 %; NRBC Per 100 WBC 0 /100 WBCS (0.0-0.0); Neutrophils # (A) 3.08 X 10*3/uL (1.80-7.70); Neutrophils % (A) 56.6 %; Platelet Count 256 X 10*3/uL (140-440); RDW 13.5 % (11.5-14.5); WBC 5.44 X 10*3/uL (4.50-10.00)
[2021-08-02] MEDS ORDERED: DILTIAZEM CD 120 MG CAP.ER.24H PO SCH (09:45)
--- NOTE | 2021-08-02 10:44 | P.PN ---
Subjective Progress Note Date: 08/02/21 HISTORY OF PRESENT ILLNESS: This is a 55-year-old female with a past medical history significant for hypertension, hyperlipidemia, and diabetes. 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 We have been asked to see the patient in consultation for near syncope and palpitations. Patient examined at the bedside. Patient states yesterday she was at work when she began having abdominal cramping and diarrhea. She states that she felt very hot and diaphoretic. She states that she thought she was going to pass out. Patient states her coworker took her blood pressure and she was found to have a systolic in the 50s. They also checked her oxygen saturations which she reports was 89%. The patient denies having an actual syncopal episode but does report that she felt like she was going to pass out. The patient's blood pressure was found to be on the lower side when she prese nted to the emergency room with a systolic in the 80s. The patient reports she has continued having diarrhea and recently it has become bloody. The patient also reports she has been having palpitations for the past few weeks. She states that she had an EKG performed at her PCP office which revealed sinus rhythm with PVCs. The patient also reports that she has noticed sometimes her heart rate is up into the 150s and she believes it is irregular. The patient reports a family history of coronary artery disease and states that her dad had a massive heart attack but is unsure what age. She also reports her brother had a heart attack when he was in his 20s. * EKG reveals sinus mechanism with no signs of acute ischemia * Chest xray negative for acute process * Chest CTA: Negative for pulmonary embolism * CT abdomen pelvis: Negative for acute process * Lower extremity Doppler: Negative for DVT bilaterally * Laboratory data: WBC 11.2. Hemoglobin 11.2. Platelet count 272. D-dimer greater than 34.10. Sodium 140. Potassium 3.9. BUN 19. Creatinine 1.19. Lactic acid 2.9. Repeat 1.9. Troponin negative 3. * Current home cardiac medications include lisinopril 10 mg daily and Lipitor 10 mg daily 07/31 Patient seen and examined. Patient has been having off-and-on episodes of SVT with heart rates in the 120s to 140s for anywhere from 10 minutes up to a few hours. She omits the palpitations sensation during these episodes however no lightheadedness and no significant shortness breath. She is scheduled for EGD and possible colonoscopy tomorrow. Echo reviewed with preserved EF without significant valvular disease. Currently in SVT and attempted vagal maneuvers including carotid massage without any change. 08/01/2021 Patient examined this afternoon at the bedside. Patient denies chest pain or pressure. She denies shortness of breath. No further episodes of SVT. Patient is scheduled for endoscopy today. Vital signs are stable. 08/02/2021 Patient examined this morning at the bedside. Patient denies chest pain or pressure. She denies shortness of breath. No further episodes of SVT. Patient underwent colonoscopy yesterday revealing mild left-sided colitis, suspected to be ischemic, and diverticulosis. PHYSICAL EXAM: VITAL SIGNS: Reviewed. GENERAL: Well-developed in no acute distress. HEENT: Head is normocephalic. Pupils are equal, round. Sclerae anicteric. Mucous membranes of the mouth are moist. Neck supple. No JVD or thyromegaly LUNGS: Respirations even and unlabored. Lungs essentially clear to auscultation bilaterally. HEART: Regular rate and rhythm. S1 and S2 heard. EXTREMITIES: Normal range of motion. No clubbing or cyanosis. Peripheral pulses intact. No lower extremity edema ASSESSMENT: Abdominal pain with bloody diarrhea Palpitations SVT Presyncope, suspect secondary to hypotension Hypotension, systolic blood pressure in the 80s upon admission Leukocytosis Elevated lactic acid, improved with IV fluids Mildly elevated LFTs Elevated d-dimer, CTA negative for PE History of hypertension Hyperlipidemia Diabetes PLAN: Continue current cardiac medications Discontinue short-acting Cardizem and begin Cardizem CD 120 mg daily Patient is stable for discharge from a cardiac standpoint Patient is to follow up outpatient with Dr. Daniel Nurse practitioner note has been reviewed by physician. Signing provider agrees with the documented findings, assessment, and plan of care. Objective - Vital Signs Vital signs: Vital Signs Temp 97.9 F 08/02/21 05:00 Pulse 76 08/02/21 08:43 Resp 16 08/02/21 08:43 BP 122/73 08/02/21 08:43 Pulse Ox 95 08/02/21 08:43 Intake & Output 08/01/21 08/02/21 08/02/21 18:59 06:59 18:59 Intake Total 500 1500 Balance 500 1500 Intake: IV 500 Intake, IV Titration 1100 Amount Piperacillin-Tazobactam 3 200 .375 gm In Sodium Chloride 0.9% 100 ml @ 25 mls/hr IVPB Q8HR [facility] Rx# :[id number] Sodium Chloride 0.9% 1, 900 000 ml @ 75 mls/hr IV . [id number] [facility] Rx#:[id number] Oral 400 Other: Voiding Method Toilet Toilet # Voids 4 2 # Bowel Movements 3 - Labs CBC & Chem 7: 08/02/21 06:42 07/30/21 08:47 Labs: Abnormal Lab Results - Last 24 Hours (Table) 07/29/21 08/01/21 08/01/21 Range/Units 03:48 12:48 17:36 RBC (4.10-5.20) X 10*6/uL Hgb (12.0-15.0) g/dL Hct (37.2-46.3) % MCHC (32.0-37.0) g/dL POC Glucose (mg/dL) 113 H 136 H (75-99) mg/dL Procalcitonin 0.12 H (0.02-0.09) ng/mL 08/01/21 08/02/21 08/02/21 Range/Units 19:53 06:42 07:13 RBC 3.50 L (4.10-5.20) X 10*6/uL Hgb 9.7 L (12.0-15.0) g/dL Hct 31.4 L (37.2-46.3) % MCHC 30.9 L (32.0-37.0) g/dL POC Glucose (mg/dL) 195 H 120 H (75-99) mg/dL Procalcitonin (0.02-0.09) ng/mL
[2021-08-02 11:16] LABS: Glucose,Whole Blood 121 mg/dL (75-99)
[2021-08-02 11:20] LABS: African American GFR (CKD) 113.8 (60.0-200.0); Anion Gap 10.8 mmol/L (10.00-18.00); BUN/Creat Ratio 8.57 Ratio (12.00-20.00); Carbon Dioxide 23.2 mmol/L (20.0-27.5); Non-African American GFR(CKD) 98.2 (60.0-200.0); Potassium 3.6 mmol/L (3.5-5.5)
--- NOTE | 2021-08-02 13:05 | P.PN ---
<ZenainoAfsaneh - Last Filed: 08/02/21 13:02> Subjective Progress Note Date: 08/02/21 CHIEF COMPLAINT: Rectal bleeding HISTORY OF PRESENT ILLNESS: Patient is status post colonoscopy with biopsy. Results showed Mild left sided colitis, suspect ischemic, diverticulosis. Patient denies any abdominal pain. Denies any nausea vomiting. Denies any further blood in the stool. She's tolerating diet. Afebrile PHYSICAL EXAM: VITAL SIGNS: Reviewed. GENERAL: Well-developed in no acute distress. HEENT: No sclera icterus. Extraocular movements grossly intact. Moist buccal mucosa. Head is atraumatic, normocephalic. ABDOMEN: Soft. Nondistended. Nontender. NEUROLOGIC: Alert and oriented. Cranial nerves II through XII grossly intact. ASSESSMENT: 1. Rectal bleeding 2. status post colonoscopy results showed Mild left sided colitis, suspect ischemic, diverticulosis PLAN: -Continue short course of antibiotics after discharge -Patient can be discharged from surgical standpoint Physician [employer]ies[employer] Superintendent note has been reviewed by physician. Signing provider agrees with the documented findings, assessment, and plan of care. Objective - Vital Signs Vital signs: Vital Signs Temp 97.9 F 08/02/21 05:00 Pulse 76 08/02/21 08:43 Resp 16 08/02/21 08:43 BP 122/73 08/02/21 08:43 Pulse Ox 95 08/02/21 08:43 Intake & Output 08/01/21 08/02/21 08/02/21 18:59 06:59 18:59 Intake Total 500 1500 Balance 500 1500 Intake: IV 500 Intake, IV Titration 1100 Amount Piperacillin-Tazobactam 3 200 .375 gm In Sodium Chloride 0.9% 100 ml @ 25 mls/hr IVPB Q8HR [facility] Rx# :[id number] Sodium Chloride 0.9% 1, 900 000 ml @ 75 mls/hr IV . [id number] [facility] Rx#:[id number] Oral 400 Other: Voiding Method Toilet Toilet # Voids 4 2 # Bowel Movements 3 - Labs CBC & Chem 7: 08/02/21 06:42 08/02/21 06:42 Labs: Abnormal Lab Results - Last 24 Hours (Table) 08/01/21 08/01/21 08/02/21 Range/Units 17:36 19:53 06:42 RBC 3.50 L (4.10-5.20) X 10*6/uL Hgb 9.7 L (12.0-15.0) g/dL Hct 31.4 L (37.2-46.3) % MCHC 30.9 L (32.0-37.0) g/dL BUN (9.0-27.0) mg/dL BUN/Creatinine Ratio (12.00-20.00) Ratio Glucose (70-110) mg/dL POC Glucose (mg/dL) 136 H 195 H (75-99) mg/dL 08/02/21 08/02/21 08/02/21 Range/Units 06:42 07:13 11:13 RBC (4.10-5.20) X 10*6/uL Hgb (12.0-15.0) g/dL Hct (37.2-46.3) % MCHC (32.0-37.0) g/dL BUN 6.0 L (9.0-27.0) mg/dL BUN/Creatinine Ratio 8.57 L (12.00-20.00) Ratio Glucose 116 H (70-110) mg/dL POC Glucose (mg/dL) 120 H 121 H (75-99) mg/dL <Casey Molina - Last Filed: 08/02/21 16:13> Subjective I have personally seen and examined the patient, reviewed the STUDIO ASSISTANT /PAs history, exam and MDM and agree with the assessment and plan as written. Based on total visit time, I have performed more than 50% of the visit. As above: Patient doing well today. Endoscopic findings showing mild left- sided colitis. Await biopsy results. October discharge. Follow-up in office. Objective - Vital Signs Vital signs: Vital Signs Temp 97.9 F 08/02/21 05:00 Pulse 76 08/02/21 08:43 Resp 16 08/02/21 08:43 BP 122/73 08/02/21 08:43 Pulse Ox 95 08/02/21 08:43 Intake & Output 08/01/21 08/02/21 08/02/21 18:59 06:59 18:59 Intake Total 500 1500 Balance 500 1500 Intake: IV 500 Intake, IV Titration 1100 Amount Piperacillin-Tazobactam 3 200 .375 gm In Sodium Chloride 0.9% 100 ml @ 25 mls/hr IVPB Q8HR [facility] Rx# :[id number] Sodium Chloride 0.9% 1, 900 000 ml @ 75 mls/hr IV . [id number] [facility] Rx#:[id number] Oral 400 Other: Voiding Method Toilet Toilet # Voids 4 2 # Bowel Movements 3 - Labs CBC & Chem 7: 08/02/21 06:42 08/02/21 06:42 Labs: Abnormal Lab Results - Last 24 Hours (Table) 08/01/21 08/01/21 08/02/21 Range/Units 17:36 19:53 06:42 RBC 3.50 L (4.10-5.20) X 10*6/uL Hgb 9.7 L (12.0-15.0) g/dL Hct 31.4 L (37.2-46.3) % MCHC 30.9 L (32.0-37.0) g/dL BUN (9.0-27.0) mg/dL BUN/Creatinine Ratio (12.00-20.00) Ratio Glucose (70-110) mg/dL POC Glucose (mg/dL) 136 H 195 H (75-99) mg/dL 08/02/21 08/02/21 08/02/21 Range/Units 06:42 07:13 11:13 RBC (4.10-5.20) X 10*6/uL Hgb (12.0-15.0) g/dL Hct (37.2-46.3) % MCHC (32.0-37.0) g/dL BUN 6.0 L (9.0-27.0) mg/dL BUN/Creatinine Ratio 8.57 L (12.00-20.00) Ratio Glucose 116 H (70-110) mg/dL POC Glucose (mg/dL) 120 H 121 H (75-99) mg/dL
== END 2021-08-02 15:34 | disposition home or self-care (01) | DRG 394 ==
LOC: EC 20:46 → 6NMEDSUR 07-29 00:34 → 3SCARD 07-29 10:30 → 5NMEDONC 07-30 11:22 → OBSVTOIN 07-30 12:06
PROVIDERS: ADMIT Hospitalist; ATTEND Hospitalist
PROC: 0DDG8ZX Extraction of Left Large Intestine, Via Natural or Artificial Opening Endoscopic, Diagnostic (ICD-10-PCS; principal; 2021-08-01 09:45)
DX: K55.8 Other vascular disorders of intestine (principal); I47.1 Supraventricular tachycardia; K57.30 Diverticulosis of large intestine without perforation or abscess without bleeding; D64.9 Anemia, unspecified; Z20.822 Contact with and (suspected) exposure to COVID-19; E11.9 Type 2 diabetes mellitus without complications; E78.5 Hyperlipidemia, unspecified; I95.1 Orthostatic hypotension; E86.0 Dehydration; E86.1 Hypovolemia; I10 Essential (primary) hypertension; I49.3 Ventricular premature depolarization; K76.0 Fatty (change of) liver, not elsewhere classified; Z79.84 Long term (current) use of oral hypoglycemic drugs; Z79.899 Other long term (current) drug therapy; Z88.2 Allergy status to sulfonamides
CPT/HCPCS: 36415; 45380; 71046; 71275; 74176; 80048; 80053; 81001; 81025; 82272; 82607; 82728; 82746; 83540; 83550; 83605; 83735; 84145; 84443; 84484; 85025; 85027; 85379; 85610; 85730; 87324; 87635; 88305; 93005; 93306; 93970; 96360; 99285